=== PATIENT | female | born 1980 | race Caucasian/White ===

== ENCOUNTER → 2017-05-29 06:29 | Outpatient (CLI) | payer BC, SELFPAY ==
--- NOTE | 2017-05-29 11:34 | STRESSREP_ITS ---
Stress Test Report Exercise myocardial perfusion stress test. 36 yo lady with a history of chest pain. Stress protocol: Resting EKG demonstrates normal sinus rhythm with a rate of 90 bpm normal intervals and noted resting blood pressure is 128/90 mmHg. The patient exercised according to the regular [facility] protocol for a total duration of 8-1/2 minutes attaining a maximum heart rate of 187 bpm which was 102% of the maximum predicted heart rate the maximum workload was 10.4 metabolic equivalents. The patient maintained sinus rhythm throughout the recording. At rest there were no ST or T-wave changes noted suggest ischemia peak exercise upsloping ST changes only were noted with no meet criteria for ischemia. No clinical angina was noted the resting blood pressure is 128/90 mmHg rate pressure product was 29 ,100. Myocardial perfusion protocol. 0.4 mCi of technetium 99m sestamibi was injected at rest. The patient exercised for 8-1/2 minutes attaining 102% of the maximum predicted heart rate the maximum workload attained was 10.4 metabolic equivalents. At peak exercise 34.1 mCi of technetium 99m sestamibi was injected. Stress images were obtained. Stress and rest images were reconstructed and compared in the short axis vertical long and horizontal long axis. Gated images were also obtained. Perfusion SPECT analysis: Review of the stress images demonstrate normal uptake of tracer noted in all areas of the myocardium the resting images similarly demonstrate normal uptake of tracer noted in all areas of the myocardium. No areas of reversibility are noted suggest ischemia no clinical angina is noted. Gated SPECT analysis: The gated ejection fraction is noted to be 65%. Conclusion: Normal exercise myocardial perfusion stress test at a high workload. Preserved ejection fraction.
== END ==
LOC: CVS 06:31
PROVIDERS: Family Provider Family Medicine; PCP Family Medicine; Visit Provider Family Medicine
DX: R07.9 Chest pain, unspecified (principal)
CPT/HCPCS: 78452; 93017; A9500; A4216

== ENCOUNTER → 2018-10-25 13:38 | Outpatient (CLI) | payer BC, SELFPAY ==
[2018-10-25 15:34] LABS: Internal QC Validated? YES +Cl - CLEAR BKGD; Monotest Negative (Negative)
[2018-10-25 15:47] LABS: Absolute Lymphocyte Count 1.85 X10^3/ul (0.83-4.51); Absolute Neutrophil Count 5.7 X10^3/uL (2.0-7.7); Basophil# 0.03 X10^3/uL; Basophil% 0.4 % (0-1); Eosinophils% 2.4 % (0-5); Hematocrit 40.8 % (37-47); Hemoglobin 13.3 g/dl (12.0-15.0); Lymphocyte # 1.85 X10^3/ul (4.0); Lymphocyte % 22.5 % (19-41); Mean Corp Hgb Conc 32.6 g/gl (32-36); Mean Corpuscular Hgb 27.7 pg (27.0-32.0); Mean Platelet Vol. 11.4 fl (6.2-12.0); Monocyte# 0.39 X10^3/uL; Monocyte% 4.8 % (0-10); Neutrophil # 5.73 X10^3/uL (2.7-7.7); Neutrophil % 69.8 % (47-70); Platelet Count 170 K/mm3 (150-450); RBC Distribution Width CV 14.6 % (11.6-14.6); RBC Distribution Width SD 45.4 fl (35.1-43.9); White Blood Count 8.2 K/mm3 (4.4-11.0)
[2018-10-25 15:55] LABS: Anion Gap 7 (5-15); BUN 14 mg/dL (7-18); BUN/Creat Ratio 17.7 RATIO (10-20); Calcium,Total 8.7 mg/dL (8.5-10.1); Chloride 105 mmol/L (98-107); Creatinine, Serum 0.79 mg/dL (0.55-1.02); EST Glomerular Filtration Rate 86 mL/min (>60); Est Glom Filt Rate - Afr Amer 104 mL/min (>60); Glucose 104 mg/dL (74-106); Potassium 3.7 mmol/L (3.5-5.1); Sodium Level 138 mmol/L (136-145); Thyroid Stim Hormone (TSH) 1.64 uIU/mL (0.358-3.74)
[2018-10-25 16:10] LABS: POSITIVE COUNT NO; POSITIVE DIFFERENTIAL NO; POSITIVE MORPHOLOGY NO
[2018-10-28 13:48] LABS: EBV Acute VCA IgM < 36.0 U/mL (0.0-35.9); EBV Early Antigen IgG 75.3 U/mL (0.0-8.9)
== END ==
PROVIDERS: Family Provider Family Medicine; PCP Family Medicine; Visit Provider Family Medicine
DX: R53.83 Other fatigue (principal)
CPT/HCPCS: 36415; 80048; 84443; 85025; 86308; 86663; 86664; 86665

== ENCOUNTER → 2018-11-22 13:35 | Outpatient (CLI) | payer BC, SELFPAY ==
[2018-11-27 08:48] LABS: HPV Reflexed? NOT INDICATED
== END ==
PROVIDERS: Family Provider Family Medicine; PCP Family Medicine; Referring Provider Obstetrics & Gynecology; Visit Provider Obstetrics & Gynecology
DX: Z12.4 Encounter for screening for malignant neoplasm of cervix (principal); R30.0 Dysuria
CPT/HCPCS: 87086; 87088; 87624; 88175; G0145

== ENCOUNTER → 2019-02-12 14:59 | Outpatient (CLI) | payer BC, SELFPAY ==
[2019-01-22 14:53] VITALS: BMI 34.0
--- NOTE | 2019-02-12 15:02 | ECHOD_ITS ---
Reason For Study: Arrhythmia Procedure This was a 2D Doppler, Color Flow transthoracic echocardiogram. Exam performed in department. Left Ventricle Normal size and thickness. The estimated ejection fraction is 65 %. Normal diastology for age. No regional wall motion abnormalities noted. Right Ventricle Normal size and thickness. Normal systolic function. Atria Normal left atrium. Normal right atrium. Normal atrial septum. Mitral Valve The mitral valve is structurally normal. No prolapse or stenosis seen. Tricuspid Valve Normal tricuspid valve. Unable to estimate RV systolic pressure due to insufficient tricuspid regurgitant envelope. Aortic Valve Normal aortic valve. Trisinus/trileaflet aortic valve. Pulmonic Valve Normal pulmonic valve. Great Vessels Normal aortic root. Normal arch. Normal inferior vena cava. Inferior vena cava collapse with sniff. Pericardium/Pleural No pericardial effusion. MMode/2D Measurements & Calculations LVIDd: 3.6 cm IVSd: 0.92 cm Ao root diam: 3.0 cm LVIDs: 2.3 cm LVPWd: 1.0 cm LA dimension: 3.2 cm RVDd: 3.2 cm FS: 34.6 % LAV(MOD-bp): 44.1 ml LA A4 area: 17.1 cm2 RA A4 area: 12.8 cm2 LAV(MOD-bp) Indexed: 21.6 ml/m2 LAV(MOD-sp2): 39.1 ml LAV(MOD-sp4): 48.3 ml Time Measurements MV dec time: 0.19 sec Doppler Measurements & Calculations MV E max zack: 77.3 cm/sec Lat Peak E' Zack: 12.1 cm/sec Med Peak E' Zack: 11.7 cm/sec MV A max zack: 69.6 cm/sec E/E' lat: 6.4 E/E' med: 6.6 MV E/A: 1.1 MV V2 max: 76.6 cm/sec MV P1/2t max zack: 76.6 cm/sec Ao V2 max: 129.3 cm/sec MV max P.3 mmHg MV P1/2t: 67.6 msec Ao max P.7 mmHg MV V2 mean: 47.1 cm/sec MV dec slope: 331.8 cm/sec2 Ao V2 mean: 83.4 cm/sec MV mean P.1 mmHg MVA(P1/2t): 3.3 cm2 Ao mean P.2 mmHg MV V2 VTI: 17.0 cm Ao V2 VTI: 24.3 cm LV V1 max: 107.8 cm/sec PA V2 max: 90.5 cm/sec LV V1 max P.7 mmHg LV V1 mean P.2 mmHg LV V1 mean: 66.5 cm/sec LV V1 VTI: 20.8 cm Interpretation Summary The estimated ejection fraction is 65 %. Normal diastology for age. Unable to estimate RV systolic pressure due to insufficient tricuspid regurgitant envelope. There is no comparison study available. Ordering Physician: Prashant Caban Referring Physician: Velma De La Cruz Performed By: Jhonatan Busch RCS
== END ==
PROVIDERS: Family Provider Family Medicine; PCP Family Medicine; Referring Provider Internal Medicine Cardiovascular Disease; Visit Provider Internal Medicine Cardiovascular Disease
DX: R00.0 Tachycardia, unspecified (principal); R00.2 Palpitations; R42 Dizziness and giddiness
CPT/HCPCS: 93306

== ENCOUNTER → 2019-02-13 20:44 | Outpatient (CLI) | payer BC, SELFPAY ==
[2019-01-22 14:53] VITALS: BMI 34.0
== END ==
PROVIDERS: Family Provider Family Medicine; PCP Family Medicine; Referring Provider Internal Medicine Cardiovascular Disease; Visit Provider Internal Medicine Cardiovascular Disease
DX: G47.10 Hypersomnia, unspecified (principal); R06.83 Snoring; R00.0 Tachycardia, unspecified; R00.2 Palpitations; R42 Dizziness and giddiness
CPT/HCPCS: 95810

== ENCOUNTER → 2019-02-21 09:21 | Outpatient (CLI) | payer BC, SELFPAY ==
[2019-01-22 14:53] VITALS: BMI 34.0
--- NOTE | 2019-02-21 09:23 | STE_ITS ---
Reason For Study: ARRHYTHMIA-OTHER Stress Results Maximum Predicted HR: 180 bpm Target HR: 153 bpm % Maximum Predicted HR: 96 % DurationHeart Rate Stage (mm:ss) (bpm) BP BASELINE 88 122/90 STAGE 1 3:00 126 122/70 STAGE 2 3:00 141 134/82 STAGE 3 3:00 173 142/90 RECOVERY 116 120/80 Stress Duration: 9:00 mm:ss Maximum Stress HR: 173 bpm Baseline Echocardiogram Findings The estimated ejection fraction is 65 %. Stress Echo Wall motion Data Resting WM Intermediate WM Stress WM Resting Wall Motion Wall Motion Stress No regional wall motion No regional wall motion abnormalities noted. abnormalities noted. EKG Data The baseline ECG displays normal sinus rhythm. The patient exercised according to the regular [facility] protocol for a total duration of 9:00. The maximum heart rate attained was 190 beats per minute. This was 105% of maximum predicted heart rate. The patient exercised into stage 4 of the [facility]ico protocol. During stress, there were no ST or T wave changes noted to suggest ischemia. No clinical angina was noted. Interpretation Summary The estimated ejection fraction is 65 %. Normal, adequate, treadmill echocardiogram. Negative for ischemia by EKG and echocardiographic criteria. No anginal symptoms noted. Rare PVC noted. Appropriate blood pressure response to exercise. Average exercise capacity for age. Final LVEF is 75%. Test terminated due to attainment of target heart rate and dyspnea. Patient tolerated procedure well. No complications. Ordering Physician: Prashant Caban MD Referring Physician: Prashant Caban Performed By: Marta Hernandez RDCS
[2019-02-21 12:01] LABS: AST(SGOT) 28 U/L (15-37); Alanine Aminotransfer ALT/SGPT 43 U/L (13-56); Albumin, Serum 3.6 g/dL (3.2-5.0); Alkaline Phosphatase 79 U/L (45-117); Bilirubin, Direct 0.23 mg/dL (0.00-0.30); Cholesterol 204 mg/dL (200); Globulin 4.4 g/dL (2.2-4.2); High Density Lipoprotein 44 mg/dL; Triglycerides 142 mg/dL; Very Low Density Lipoprotein 28 mg/dL (5-40)
== END ==
PROVIDERS: Family Provider Family Medicine; PCP Family Medicine; Referring Provider Internal Medicine Cardiovascular Disease; Visit Provider Internal Medicine Cardiovascular Disease
DX: Z13.220 Encounter for screening for lipoid disorders (principal); R00.0 Tachycardia, unspecified; R00.2 Palpitations; R42 Dizziness and giddiness; G47.10 Hypersomnia, unspecified; R06.83 Snoring
CPT/HCPCS: 36415; 80061; 80076; 93017; 93350

== ENCOUNTER → 2019-05-03 20:00 | Outpatient (CLI) | payer BC, SELFPAY ==
[2019-02-28 07:53] VITALS: BMI 34.0
== END ==
PROVIDERS: Family Provider Family Medicine; PCP Family Medicine; Referring Provider Nurse Practitioner Acute Care; Visit Provider Nurse Practitioner Acute Care
DX: G47.33 Obstructive sleep apnea (adult) (pediatric) (principal)
CPT/HCPCS: 95811

== ENCOUNTER → 2019-05-23 09:00 | Outpatient (CLI) | payer BC, SELFPAY ==
[2019-02-28 07:53] VITALS: BMI 34.0
== END ==
PROVIDERS: PCP Family Medicine; Referring Provider Nurse Practitioner Acute Care; Visit Provider Nurse Practitioner Acute Care
DX: G47.33 Obstructive sleep apnea (adult) (pediatric) (principal)

== ENCOUNTER → 2019-06-20 13:00 | Outpatient (CLI) | payer BC, SELFPAY ==
[2019-06-03 12:28] VITALS: BMI 34.2
== END ==
PROVIDERS: PCP Family Medicine; Referring Provider Internal Medicine Critical Care Medicine; Visit Provider Internal Medicine Critical Care Medicine
DX: G47.10 Hypersomnia, unspecified (principal)
CPT/HCPCS: 98960; G0463

== ENCOUNTER → 2020-02-12 09:11 | Outpatient (CLI) | payer BC, SELFPAY ==
[2019-08-06 08:07] VITALS: BMI 34.2
[2020-02-12 10:36] LABS: Absolute Lymphocyte Count 1.62 X10^3/uL (0.83-4.51); Absolute Neutrophil Count 6.4 X10^3/uL (2.0-7.7); Basophil# 0.06 X10^3/uL; Basophil% 0.7 % (0-1); Eosinophil# 0.29 X10^3/uL; Eosinophils% 3.2 % (0-5); Hematocrit 40.9 % (37-47); Hemoglobin 12.9 g/dL (12.0-15.0); Lymphocyte # 1.62 X10^3/ul (4.0); Lymphocyte % 18.1 % (19-41); Mean Corp Hgb Conc 31.5 g/dL (32-36); Mean Corpuscular Hgb 27.4 pg (27.0-32.0); Mean Platelet Vol. 11.8 fl (6.2-12.0); Monocyte# 0.55 X10^3/uL; Monocyte% 6.2 % (0-10); NRBC Flagged by Analyzer 0 % (0-5); Neutrophil # 6.38 X10^3/uL (2.7-7.7); Neutrophil % 71.5 % (47-70); Platelet Count 174 K/mm3 (150-450); RBC Distribution Width CV 13.8 % (11.6-14.6); RBC Distribution Width SD 44.8 fl (35.1-43.9); White Blood Count 8.9 K/mm3 (4.4-11.0)
== END ==
PROVIDERS: PCP Family Medicine; Referring Provider Family Medicine; Visit Provider Family Medicine
DX: D69.6 Thrombocytopenia, unspecified (principal)
CPT/HCPCS: 36415; 85025

== ENCOUNTER → 2020-06-25 06:59 | Outpatient (CLI) | payer BC, SELFPAY ==
[2020-05-21 08:30] VITALS: BMI 35.5
[2020-06-24 11:07] VITALS: BMI 35.6
--- NOTE | 2020-06-25 07:02 | CT_ITS ---
STUDY: CT MAXILLOFACIAL SINUSES REASON FOR EXAM: Female, 39 years old. SINUSITIS RADIATION DOSAGE (If Supplied By Facility): CTDIvol = ( 33.06 ) mGy, DLP = ( 751.21 ) mGycm TECHNIQUE: The patient was scanned in a multi detector CT scanner. High resolution axial imaging was performed without the administration of intravenous contrast material. Sagittal and coronal images were reconstructed. Individualized dose optimization techniques were used for this CT. COMPARISON: None. FINDINGS: FRONTAL SINUSES: Normal aeration, without mucosal inflammatory disease. ETHMOIDAL SINUSES: Normal aeration, without mucosal inflammatory disease. MAXILLARY SINUSES: Normal aeration, without mucosal inflammatory disease. SPHENOIDAL SINUSES: Normal aeration, without mucosal inflammatory disease. There is patency of the bilateral maxillary infundibuli with normal uncinate processes, ethmoid bullae, and hiatus semilunaris. Hypoplastic right middle turbinate. Normal left middle turbinate. Normal bilateral inferior turbinates. Moderate right-sided deviation of the nasal septum. This is narrowing the right nasal cavity. There is patency of the bilateral nasal airways. The visualized osseous structures are normal. The visualized bilateral orbital contents are normal. CT/Sinus/Facial Bone IMPRESSION: 1. No CT evidence of acute or chronic sinusitis. 2. Moderate right-sided nasal septal deviation narrowing the right nasal airway. 3. Bilaterally patent ostiomeatal units. Electronically Signed: Tenzin San MD at 11:17 EST , Service support ,
== END ==
PROVIDERS: PCP Family Medicine; Referring Provider Otolaryngology; Visit Provider Otolaryngology
DX: J32.8 Other chronic sinusitis (principal)
CPT/HCPCS: 70486

== ENCOUNTER → 2020-08-28 15:21 | Outpatient (CLI) | payer BC, SELFPAY ==
[2020-06-24 11:07] VITALS: BMI 35.6
== END ==
PROVIDERS: PCP Family Medicine; Referring Provider Otolaryngology; Visit Provider Otolaryngology
DX: Z20.822 Contact with and (suspected) exposure to COVID-19 (principal)
CPT/HCPCS: 87635; C9803; U0002

== ENCOUNTER → 2020-09-10 09:34 | Outpatient (CLI) | payer BC, SELFPAY ==
[2020-06-24 11:07] VITALS: BMI 35.6
[2020-09-10 12:28] LABS: Absolute Lymphocyte Count 1.68 X10^3/uL (0.83-4.51); Absolute Neutrophil Count 5.3 X10^3/uL (2.0-7.7); Basophil# 0.07 X10^3/uL; Basophil% 0.9 % (0-1); Eosinophil# 0.21 X10^3/uL; Eosinophils% 2.7 % (0-5); Hematocrit 39.6 % (37-47); Hemoglobin 12.7 g/dL (12.0-15.0); Lymphocyte # 1.68 X10^3/ul (0.83-4.51); Lymphocyte % 21.7 % (19-41); Mean Corp Hgb Conc 32.1 g/dL (32-36); Mean Corpuscular Hgb 27.7 pg (27.0-32.0); Mean Corpuscular Volume 86.5 fL (81-99); Mean Platelet Vol. 11.9 fl (6.2-12.0); Monocyte# 0.48 X10^3/uL; Monocyte% 6.2 % (0-10); NRBC Flagged by Analyzer 0 % (0-5); Neutrophil # 5.27 X10^3/uL (2.7-7.7); Platelet Count 218 K/mm3 (150-450); RBC Distribution Width CV 13.9 % (11.6-14.6); RBC Distribution Width SD 43.8 fl (35.1-43.9); Red Blood Count 4.58 M/mm3 (4.2-5.4); White Blood Count 7.8 K/mm3 (4.4-11.0)
[2020-09-10 13:02] LABS: Vitamin D,25 Hydroxy 16.2 ng/mL
[2020-09-10 13:07] LABS: Anion Gap 6 (5-15); BUN 11 mg/dL (7-18); BUN/Creat Ratio 15.2 RATIO (10-20); Calcium,Total 8.9 mg/dL (8.5-10.1); Chloride 104 mmol/L (98-107); Cholesterol 237 mg/dL (200); Creatinine, Serum 0.73 mg/dL (0.55-1.02); EST Glomerular Filtration Rate 94 mL/min (>60); Est Glom Filt Rate - Afr Amer 113 mL/min (>60); Follicle Stimulating Hormone 5.5 mIU/mL; Glucose 92 mg/dL (74-106); High Density Lipoprotein 39 mg/dL; Luteinizing Hormone 4.8 mIU/mL; Potassium 3.9 mmol/L (3.5-5.1); Sodium Level 135 mmol/L (136-145); Triglycerides 195 mg/dL; Very Low Density Lipoprotein 39 mg/dL (5-40)
[2020-09-20 07:46] LABS: Estrogen, Total, Serum 167 pg/mL (.)
== END ==
PROVIDERS: PCP Family Medicine; Referring Provider Family Medicine; Visit Provider Family Medicine
DX: Z00.00 Encounter for general adult medical examination without abnormal findings (principal); D69.6 Thrombocytopenia, unspecified; N95.9 Unspecified menopausal and perimenopausal disorder
CPT/HCPCS: 36415; 80048; 80061; 82306; 82672; 83001; 83002; 85025

== ENCOUNTER → 2020-11-09 07:31 | Outpatient (CLI) | payer BC, SELFPAY ==
[2020-06-24 11:07] VITALS: BMI 35.6
--- NOTE | 2020-11-09 07:35 | US_ITS ---
STUDY: SUPERFICIAL ULTRASOUND - LEFT BUTTOCK. REASON FOR EXAM: Female, 40 years old. BUTTOCK PAIN . Palpable lump. TECHNIQUE: A superficial ultrasound was performed with real-time and static underwood-scale imaging. COMPARISON: None. FINDINGS: The area of the palpable abnormality was examined by ultrasound. No sonographic abnormality is seen. US/Ext Non Vasc Limited/Soft Tiss IMPRESSION: No sonographic abnormality is seen. Electronically Signed: Kuldeep Goldstein MD at 13:17 EDT , Service support ,
== END ==
PROVIDERS: PCP Family Medicine; Referring Provider Family Medicine; Visit Provider Family Medicine
DX: M79.18 Myalgia, other site (principal)
CPT/HCPCS: 76882

== ENCOUNTER → 2021-02-11 13:45 | Outpatient (CLI) | payer BC, SELFPAY ==
[2021-02-16 11:58] LABS: HPV Reflexed? NOT INDICATED
== END ==
PROVIDERS: PCP Family Medicine; Visit Provider Obstetrics & Gynecology
DX: Z12.4 Encounter for screening for malignant neoplasm of cervix (principal)
CPT/HCPCS: 88175; G0145

== ENCOUNTER → 2021-02-19 08:29 | Outpatient (CLI) | payer BC, SELFPAY ==
[2021-02-19 10:12] LABS: Cholesterol 213 mg/dL (200); High Density Lipoprotein 42 mg/dL; Triglycerides 189 mg/dL; Very Low Density Lipoprotein 38 mg/dL (5-40)
== END ==
PROVIDERS: PCP Family Medicine; Referring Provider Family Medicine; Visit Provider Family Medicine
DX: E78.5 Hyperlipidemia, unspecified (principal)
CPT/HCPCS: 36415; 80061

== ENCOUNTER 2021-07-06 16:57 | Outpatient (CLI) | payer BC, SELFPAY | END 2021-07-06 23:59 | disposition home or self-care (01) | LOC: LABSPEC 16:59 | PROVIDERS: PCP Family Medicine; Visit Provider Obstetrics & Gynecology | DX: R30.0 Dysuria (principal) | CPT/HCPCS: 87086; 87088 ==

== ENCOUNTER → 2022-06-07 | Outpatient (CLI) | payer BC, SELFPAY ==
[2022-06-07 09:47] LABS: Absolute Lymphocyte Count 2.19 X10^3/uL (0.83-4.51); Absolute Neutrophil Count 5.6 X10^3/uL (2.0-7.7); Basophil# 0.09 X10^3/uL; Eosinophil# 0.36 X10^3/uL; Hematocrit 42.8 % (37-47); Hemoglobin 13.6 g/dL (12.0-15.0); Lymphocyte # 2.19 X10^3/ul (0.83-4.51); Lymphocyte % 24.6 % (19-41); Mean Corp Hgb Conc 31.8 g/dL (32-36); Mean Corpuscular Hgb 26.9 pg (27.0-32.0); Mean Corpuscular Volume 84.8 fL (81-99); Mean Platelet Vol. 11.7 fl (6.2-12.0); Monocyte% 6.7 % (0-10); NRBC Flagged by Analyzer 0 % (0-5); Neutrophil # 5.59 X10^3/uL (2.7-7.7); Neutrophil % 62.9 % (47-70); Platelet Count 372 K/mm3 (150-450); RBC Distribution Width CV 14.4 % (11.6-14.6); RBC Distribution Width SD 44.4 fl (35.1-43.9); Red Blood Count 5.05 M/mm3 (4.2-5.4); White Blood Count 8.9 K/mm3 (4.4-11.0)
[2022-06-07 10:24] LABS: Anion Gap 10 (5-15); BUN 13 mg/dL (7-18); BUN/Creat Ratio 16.5 RATIO (10-20); Chloride 100 mmol/L (98-107); Cholesterol 243 mg/dL (200); Creatinine, Serum 0.79 mg/dL (0.55-1.02); EST Glomerular Filtration Rate 84 mL/min (>60); Est Glom Filt Rate - Afr Amer 102 mL/min (>60); Glucose 89 mg/dL (74-106); High Density Lipoprotein 41 mg/dL; Potassium 3.6 mmol/L (3.5-5.1); Sodium Level 135 mmol/L (136-145); Triglycerides 197 mg/dL; Very Low Density Lipoprotein 39 mg/dL (5-40)
[2022-06-07 10:25] LABS: Vitamin D,25 Hydroxy 22.7 ng/mL
== END | disposition home or self-care (01) ==
LOC: MFPLAB 08:19
PROVIDERS: PCP Family Medicine; Referring Provider Family Medicine; Visit Provider Family Medicine
DX: Z00.00 Encounter for general adult medical examination without abnormal findings (principal); I88.9 Nonspecific lymphadenitis, unspecified
CPT/HCPCS: 36415; 80048; 80061; 82306; 85025

== ENCOUNTER → 2022-07-08 | Outpatient (CLI) | payer BC, SELFPAY ==
--- NOTE | 2022-07-08 15:31 | RAD_ITS ---
INDICATION: PNEUMONIA EXAMINATION/TECHNIQUE: X-RAY - XR Chest 2 Views COMPARISON: None. FINDINGS: LINES/DEVICES: None. LUNGS: No consolidation, edema or effusion. No pneumothorax. MEDIASTINUM AND CARDIOVASCULAR STRUCTURES: Cardiac silhouette not enlarged. Central airways and mediastinal contour are unremarkable. BONES AND SOFT TISSUES: Mild degenerative changes mid thoracic spine. RAD/Chest PA and Lateral IMPRESSION: Mild degenerative changes mid thoracic spine. Electronically Signed: Brando Lancaster MD, [facility] at 15:55 EDT ,
[2022-07-08 17:57] LABS: Absolute Lymphocyte Count 1.56 X10^3/uL (0.83-4.51); Absolute Neutrophil Count 12.2 X10^3/uL (2.0-7.7); Basophil% 0.7 % (0-1); Eosinophils% 1.3 % (0-5); Hematocrit 42.5 % (37-47); Hemoglobin 13.5 g/dL (12.0-15.0); Lymphocyte # 1.56 X10^3/ul (0.83-4.51); Lymphocyte % 10.4 % (19-41); Mean Corp Hgb Conc 31.8 g/dL (32-36); Mean Corpuscular Hgb 27.2 pg (27.0-32.0); Mean Corpuscular Volume 85.5 fL (81-99); Mean Platelet Vol. 11.7 fl (6.2-12.0); Monocyte# 0.67 X10^3/uL; Monocyte% 4.5 % (0-10); NRBC Flagged by Analyzer 0 % (0-5); Neutrophil % 81.5 % (47-70); Platelet Count 344 K/mm3 (150-450); RBC Distribution Width CV 14.9 % (11.6-14.6); RBC Distribution Width SD 46.5 fl (35.1-43.9); Red Blood Count 4.97 M/mm3 (4.2-5.4)
== END | disposition home or self-care (01) ==
PROVIDERS: PCP Family Medicine; Referring Provider Family Medicine; Visit Provider Family Medicine
DX: J18.9 Pneumonia, unspecified organism (principal)
CPT/HCPCS: 36415; 71046; 85025

== ENCOUNTER → 2022-12-26 | Outpatient (CLI) | payer BC, SELFPAY ==
--- NOTE | 2022-12-26 09:02 | RAD_ITS ---
STUDY: X-RAY - CERVICAL SPINE REASON FOR EXAM: Female, 42 years old. CERVICALGIA TECHNIQUE: 7 view(s) of the cervical spine were obtained. COMPARISON: None FINDINGS: There are mild degenerative changes of the anterior atlantoaxial articulation. Normal odontoid process. Normal cervical lordosis. Normal vertebral bodies and endplates. Normal disc space heights. Normal visualized intervertebral neuroforamina. The soft tissue structures are unremarkable. There is no demonstrated fracture of the cervical spine. RAD/Cerv Spine Obl/Flex/Ext Comp IMPRESSION: Unremarkable x-ray examination of the visualized cervical spine. Electronically Signed: Soraya Harvey MD at 17:26 EDT ,
[2022-12-26 12:10] LABS: Absolute Lymphocyte Count 1.78 X10^3/uL (0.83-4.51); Absolute Neutrophil Count 5.9 X10^3/uL (2.0-7.7); Basophil# 0.06 X10^3/uL; Basophil% 0.7 % (0-1); Eosinophil# 0.28 X10^3/uL; Eosinophils% 3.3 % (0-5); Hematocrit 41.6 % (37-47); Hemoglobin 13.1 g/dL (12.0-15.0); Lymphocyte # 1.78 X10^3/ul (0.83-4.51); Lymphocyte % 20.7 % (19-41); Mean Corp Hgb Conc 31.5 g/dL (32-36); Mean Corpuscular Hgb 27.1 pg (27.0-32.0); Mean Platelet Vol. 12.9 fl (6.2-12.0); Monocyte# 0.52 X10^3/uL; NRBC Flagged by Analyzer 0 % (0-5); Neutrophil # 5.91 X10^3/uL (2.7-7.7); Neutrophil % 68.7 % (47-70); Platelet Count 245 K/mm3 (150-450); RBC Distribution Width SD 47.4 fl (35.1-43.9); Red Blood Count 4.84 M/mm3 (4.2-5.4); White Blood Count 8.6 K/mm3 (4.4-11.0)
[2022-12-26 12:52] LABS: ALB/GLOB Ratio 0.7 RATIO (0.9-2.4); AST(SGOT) 19 U/L (15-37); Alanine Aminotransfer ALT/SGPT 30 U/L (13-56); Albumin, Serum 3.5 g/dL (3.2-5.0); Alkaline Phosphatase 105 U/L (45-117); Anion Gap 9 (5-15); BUN 9 mg/dL (7-18); BUN/Creat Ratio 10.8 RATIO (10-20); Calcium,Total 8.9 mg/dL (8.5-10.1); Chloride 103 mmol/L (98-107); Cholesterol 207 mg/dL (200); Creatinine, Serum 0.83 mg/dL (0.55-1.02); EST Glomerular Filtration Rate 79 mL/min (>60); Est Glom Filt Rate - Afr Amer 96 mL/min (>60); Globulin 4.7 g/dL (2.2-4.2); Glucose 80 mg/dL (74-106); High Density Lipoprotein 38 mg/dL; Potassium 3.9 mmol/L (3.5-5.1); Protein, Total 8.2 g/dL (6.4-8.2); Sodium Level 133 mmol/L (136-145); Triglycerides 159 mg/dL; Very Low Density Lipoprotein 32 mg/dL (5-40)
== END | disposition home or self-care (01) ==
PROVIDERS: PCP Family Medicine; Referring Provider Family Medicine; Visit Provider Family Medicine
DX: E78.5 Hyperlipidemia, unspecified (principal); D69.6 Thrombocytopenia, unspecified; M54.2 Cervicalgia
CPT/HCPCS: 36415; 72052; 80053; 80061; 85025

== ENCOUNTER → 2023-07-14 | Outpatient (CLI) | payer BC, SELFPAY ==
[2023-07-14 10:21] LABS: ALB/GLOB Ratio 0.8 RATIO (0.9-2.4); AST(SGOT) 10 U/L (15-37); Alanine Aminotransfer ALT/SGPT 14 U/L (13-56); Albumin, Serum 3.4 g/dL (3.2-5.0); Alkaline Phosphatase 82 U/L (45-117); Anion Gap 5 (5-15); BUN 11 mg/dL (7-18); BUN/Creat Ratio 14.1 RATIO (10-20); Calcium,Total 8.6 mg/dL (8.5-10.1); Chloride 106 mmol/L (98-107); Cholesterol 209 mg/dL (200); Creatinine, Serum 0.78 mg/dL (0.55-1.02); EST Glomerular Filtration Rate 85 mL/min (>60); Est Glom Filt Rate - Afr Amer 103 mL/min (>60); Globulin 4.1 g/dL (2.2-4.2); Glucose 94 mg/dL (74-106); High Density Lipoprotein 49 mg/dL; Protein, Total 7.5 g/dL (6.4-8.2); Sodium Level 136 mmol/L (136-145); Triglycerides 96 mg/dL; Very Low Density Lipoprotein 19 mg/dL (5-40)
== END | disposition home or self-care (01) ==
LOC: MTLAB 08:55
PROVIDERS: PCP Family Medicine; Referring Provider Family Medicine; Visit Provider Family Medicine
DX: E78.5 Hyperlipidemia, unspecified (principal)
CPT/HCPCS: 36415; 80053; 80061

== ENCOUNTER → 2023-07-24 | Outpatient (CLI) | payer BC, SELFPAY ==
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
== END | disposition home or self-care (01) ==
PROVIDERS: PCP Family Medicine; Referring Provider Family Medicine; Visit Provider Family Medicine
DX: M54.2 Cervicalgia (principal)
CPT/HCPCS: 72141

== ENCOUNTER → 2024-08-29 | Outpatient (CLI) | payer BC, SELFPAY ==
[2024-08-29 12:46] LABS: Color, Urine Yellow (Yellow); Glucose, Dipstick Normal (Normal); Ketone-Dipstick 5 mg/dl (Negative); Leukocyte Esterase-Dipstick 25 /ul (Negative); Nitrite-Dipstick Negative (Negative); Occult Blood-Urine 10 /ul (Negative); Protein-Dipstick 30 mg/dl (Negative); Urine Bilirubin Dipstick Negative (Negative); Urine Clarity Sl. Cloudy (Clear); Urine Urobilinogen Normal (Normal)
== END | disposition home or self-care (01) ==
LOC: LABSPEC 10:44
PROVIDERS: PCP Family Medicine; Referring Provider Family Medicine; Visit Provider Family Medicine
DX: R39.89 Other symptoms and signs involving the genitourinary system (principal); E78.5 Hyperlipidemia, unspecified; D69.6 Thrombocytopenia, unspecified; M54.2 Cervicalgia
CPT/HCPCS: 81002; 87086; 87088

== ENCOUNTER → 2024-11-22 | Outpatient (CLI) | payer BC, SELFPAY ==
[2024-11-22 18:14] LABS: Barbiturate Urine NEGATIVE (< 200 ng/mL); Benzodiazepine Urine NEGATIVE (< 200 ng/mL); PCP Urine NEGATIVE (< 25 ng/mL); THC Urine NEGATIVE (< 50 ng/mL)
== END | disposition home or self-care (01) ==
LOC: MTLAB 15:39
PROVIDERS: PCP Family Medicine; Referring Provider Internal Medicine Pulmonary Disease; Visit Provider Internal Medicine Pulmonary Disease
DX: G47.10 Hypersomnia, unspecified (principal)
CPT/HCPCS: 80307

== ENCOUNTER → 2024-12-30 | Outpatient (CLI) | payer BC, SELFPAY ==
--- OUTSIDE RECORDS SUMMARY | 2024-12-30 09:30 | XMS RPT_ITS | CCD ---
Author Organization [facility] Care Team Providers Care Project Assistant Name Role Phone Cuba Lewis MD Primary Care Provider [phone] SARAH ROUSE Referring Unavailable CUBA LEWIS Primary Care Unavailable CUBA LEWIS Primary Care Unavailable Maria Dolores HENDERSON, Dr. Brink Primary Care Provider Maria Dolores HENDERSON, Dr. Brink Attending Provider Maria Dolores HENDERSON, Dr. Brink Referring Provider Karlos HENDERSON, Dr. Trevor Moise Attending Provider Karlos HENDERSON, Dr. Trevor Moise Referring Provider [phone] Cuba Lewis Primary Care Unavailable Cuba Lewis Attending Unavailable Cuba Lewis Referring Unavailable Trevor Everett V Attending Unavailable Trevor Everett V Referring Unavailable Cuba Lewis Primary Care Unavailable Allergies Allergy Classification Reported Allergen(s) Allergy Type Date of Onset Reaction(s) Facility (3 sources) Sulfonamides (Antibiotic); Translations: [SULFA (SULFONAMIDE ANTIBIOTICS)] Drug Intolerance 02-22-20 14 Rash, Shortness of Breath [facility] (2 sources) Sulfamethoxazole Drug Allergy 06-12-19 25 Anaphylaxis [facility] (2 sources) Trimethoprim Drug Allergy 06-12-19 25 Anaphylaxis [facility] (1 source) Sulfamethoxazole Drug Allergy 06-12-19 25 [facility] (1 source) Trimethoprim Drug Allergy 06-12-19 25 [facility] Medications Current Medications Medication Drug Class(es) Dates Sig (Normalized) Sig (Original) ALPRAZolam 0.25 mg oral tablet (2 sources) Benzodiazepine Start: 03-01-2014 take 1 tablet by mouth every twenty-four hours as needed ALPRAZolam (XANAX) 0.25 mg tablet Take 1 tablet by mouth at bedtime as needed. 10 tablet 0 03/01/2014 Active clobetasol propionate 0.5 mg/ml topical cream (2 sources) Corticosteroid Start: 06-12-2024 Clobetasol 0.05 % cream Active 1 NMA TOPICAL daily as needed June 12, 2024 1:00am codeine phosphate 2 mg/ml / guaiFENesin 20 mg/ml oral solution (2 sources) Opioid Agonist Start: 06-12-2015 take 5 mL by mouth three times daily as needed codeine-guaiFENes in (GUAIFENESIN AC) 10-100 mg/5 mL syrup Indications: Upper respiratory tract infection, unspecified type Take 5 mL by mouth three times daily as needed. 120 mL 0 06/12/2015 Active FLUoxetine 40 mg oral capsule (4 sources) Serotonin Reuptake Inhibitor Start: 06-12-2024 take 1 capsule by mouth once daily Fluoxetine 40 mg capsule Active 40 mg PO daily June 12, 2024 1:00am Start: 02-25-2014 take 1 capsule by mo ut once daily FLUoxetine (PROZAC) 10 mg capsule Take 1 capsule by mouth once daily. 30 capsule 0 02/25/2014 Active gabapentin 300 mg oral capsule (20 sources) Anti-epileptic Agent Start: 06-12-2024 take 1 capsule by mouth three times daily Gabapentin (Neurontin) 300 mg capsule Active 300 mg PO THREE TIMES A DAY June 12, 2024 1:00am Start: 05-21-2020 End: 06-12-2024 take 3 capsules by mouth twice daily Gabapentin 100 mg capsule Discontinued 300 mg PO TWICE A DAY May 21, 2020 9:30am June 12, 2024 7:27pm Start: 05-21-2020 take 300 mg by mouth twice mikael ly Gabapentin Active 300 MG PO TWICE A DAY May 21, 2020 9:30am Start: 01-21-2019 End: 05-21-2020 take 1 capsule by mouth twice daily Gabapentin 100 mg capsule Discontinued 100 mg PO TWICE A DAY January 21, 2019 12:00am May 21, 2020 9:30am take 1 capsule by mo uth twice daily gabapentin (NEURONTIN) 300 mg capsule Take 300 mg by mouth twice daily. Active modafinil 200 mg oral tablet (2 sources) Sympathomimetic-like Agent Start: 06-12-2024 take 1 tablet by mouth once daily Modafinil (Provigil) 200 mg tablet Active 200 mg PO daily June 12, 2024 1:00am thyroid (mcc) 90 mg oral tablet (2 sources) Start: 06-12-2024 take 1 tablet by mouth once daily in the morning Thyroid (Pork) (Rap Artist Thyroid) 90 mg tablet Active 90 mg PO EVERY MORNING June 12, 2024 1:00am traMADol hydrochloride 50 mg oral tablet (10 sources) Opioid Agonist Start: 01-21-2019 End: 06-12-2024 take 1 tablet by mouth three times daily as needed Tramadol 50 mg tablet Active 50 mg PO THREE TIMES A DAY as needed June 12, 2024 7:27pm Completed/Discontinued Medications Medication Drug Class(es) Dates Sig (Normalized) Sig (Original) 24 hr dilTIAZem hydrochloride 180 mg extended release oral capsule (20 sources) Calcium Channel Estrellita Start: 08-06-2019 End: 05-16-2024 take 1 capsule by mouth once daily Diltiazem Hcl 180 mg capsule,extended release 24hr Discontinued 180 mg PO DAILY 30 0 May 10, 2024 4:44pm May 16, 2024 3:15pm Start: 01-22-2019 End: 08-06-2019 take 1 capsule by mouth once daily Diltiazem Hcl 120 mg capsule,extended release 24hr Discontinued 120 mg PO DAILY 30 11 January 22, 2019 12:00am August 06, 2019 9:34am Problems Active Problems Problem Classification Problem Date Documented Date Episodic/Chronic Cardiac dysrhythmias (16 sources) Palpitations; Translations: [Palpitations] 05-21-2020 Episodic Conditions associated with dizziness or vertigo (16 sources) Dizziness; Translations: [Dizziness and giddiness] 05-21-2020 Episodic Disorders of lipid metabolism (2 sources) Hyperlipidemia; Translations: [Hyperlipidemia, unspecified] 06-12-2024 Chronic Genitourinary symptoms and ill-defined conditions (1 source) Other symptoms and signs involving the genitourinary system; Translations: [Other symptoms and signs involving the genitourinary system] Onset: 09-04-2024 Episodic Malaise and fatigue (2 sources) Fatigue; Translations: [Other fatigue] 06-12-2024 Episodic Other lower respiratory disease (8 sources) Snoring; Translations: [Snoring] 01-22-2019 Episodic Other lower respiratory disease (2 sources) Cough; Translations: [Acute cough] 04-24-2024 Episodic Other nutritional; endocrine; and metabolic disorders (8 sources) Body mass index 30+ - obesity; Translations: [Body mass index (BMI) 34.0-34.9, adult] 02-28-2019 Chronic Residual codes; unclassified (8 sources) Obstructive sleep apnea syndrome; Translations: [Obstructive sleep apnea (adult) (pediatric)] 05-21-2020 Chronic Comment on above: AHI of 74.5 events p er hour Residual codes; unclassified (8 sources) Hypersomnia; Translations: [Hypersomnia, unspecified] 01-22-2019 Chronic Residual codes; unclassified (1 source) Hypersomnia, unspecified; Translations: [Hypersomnia, unspecified] Onset: 11-28-2024 Chronic Unclassified (1 source) Acute cough; Translations: [Acute cough] Onset: 04-24-2024 Viral infection (1 source) Viral disease; Translations: [Viral infection, unspecified] 04-24-2024 Episodic Past or Other Problems Problem Classification Problem Date Documented Da te Episodic/Chronic Headache; including migraine (2 sources) Headache; Translations: [Headache] Onset: 12-17-2008 12-17-2008 Episodic Spondylosis; intervertebral disc disorders; other back problems (2 sources) Neck pain; Translations: [Cervicalgia] Onset: 04-14-2009 04-14-2009 Episodic Results Test Name Value Interpretation Reference Range Facility Amphetamine detection with 1 000 ng/mL as cutoffOrdered By: Trevor Everett on 11-22-2024 Amphetamines Screen method >1000 ng/mL Ql (U) Negative < 200 ng/mL [facility] No Panel InformationOrdered By: Trevor Everett on 11-22-2024 Urine Buprenorphine Qualitative Negative < 200 ng/mL [facility] Urine Oxycodone Screen Negative < 100 ng/mL [facility] Quantitative urine opiates m easurementOrdered By: Trevor Everett on 11-22-2024 Opiates Ql (U) Negative < 300 ng/mL [facility] Screening urine fentanyl marilee surementOrdered By: Trevor Everett on 11-22-2024 fentaNYL Screen Ql (U) Negative [facility] Urine Drug Screen (VISTA)on 11-22-2024 AMPHETAMINES Negative Normal <1000 ng/mL [facility] Comment on above: Order Comment: UNK Performed By: #### L 505.5000 #### [facility] [address] [place] [address] BARBITIURATES Negative Normal < 200 ng/mL [facility] Comment on above: Order Comment: UNK Performed By: #### L 505.5000 #### [facility] [address] [place] [address] BENZODIAZIPINE Negative Normal < 200 ng/mL [facility] Comment on above: Order Comment: UNK Performed By: #### L 505.5000 #### [facility] [address] [place] [address] BUP Ur Drug Scr Negative Normal < 200 ng/mL [facility] Comment on above: Order Comment: UNK Performed By: #### L 505.5000 #### [facility] [address] [place] [address] COCAINE Negative Normal < 300 ng/mL [facility] Comment on above: Order Comment: UNK Performed By: #### L 505.5000 #### [facility] [address] [place] [address] Fentanyl Negative Normal [facility] Comment on above: Order Comment: UNK Performed By: #### L 505.5000 #### [facility] [address] [place] [address] METHADONE Negative Normal < 300 ng/mL [facility] Comment on above: Order Comment: UNK Performed By: #### L 505.5000 #### [facility] [address] [place] [address] OPIATES Negative Normal < 300 ng/mL [facility] Comment on above: Order Comment: UNK Performed By: #### L 505.5000 #### [facility] [address] [place] [address] OXYCODONE Negative Normal < 100 ng/mL [facility] Comment on above: Order Comment: UNK Performed By: #### L 505.5000 #### [facility] [address] [place], [place], [address] PCP Negative Normal < 25 ng/mL [facility] Comment on above: Order Comment: UNK Performed By: #### L 505.5000 #### [facility] [address] [place], [place], [id number] THC Negative Normal < 50 ng/mL [facility] Comment on above: Order Comment: UNK Performed By: #### L 505.5000 #### [facility] [address] [place], [place], [id number] Urine benzodiazepine levelOr dered By: Trevor Everett on 11-22-2024 Benzodiazepines Ql (U) Negative < 200 ng/mL [facility] Urine cocaine levelOrdered B y: Trevor Everett on 11-22-2024 Cocaine Ql (U) Negative < 300 ng/mL [facility] Urine [id number]-4-nwnfocgcorbjtk abinol (THC) measurementOrdered By: Trevor Everett on 11-22-2024 Cannabinoids Screen Ql (U) Negative < 50 ng/mL [facility] Urine phencyclidine (PCP) de tectionOrdered By: Trevor Everett on 11-22-2024 Phencyclidine Ql (U) Negative < 25 ng/mL [facility] L3410.9992on 09-14-2024 [facility] Misc. Normal [facility] Comment on above: Order Comment: [id number] CANNABINOIDS URINE RT Result Comment: TEST RESULTS LIMITS Cannabinoid, Urine Cannabinoid Positive Cutoff=20 Carboxy THC Conf, MS, UR 378 ng/mL Cutoff=10 Please Note: Drug test results should be interpreted in the context of clinical information. Patient metabolic variables, specific drug chemistry, and specimen characteristics can affect test outcome. Technical consultation is available if a test result is inconsistent with an expected outcome. Email: [email or web address] TESTING PERFORMED AT [facility]. ORIGINAL REPORT ON FILE IN LAB CONTAINS ADDITIONAL TEST SITE INFORMATION. Performed By: #### L 3410.9992 #### [facility] [address] [place] [address]. [place], [address] L3410.9992on 09-05-2024 [facility]. COMMENT Normal . [facility] Comment on above: Order Comment: [id number] TRAMADOL URINE SCREEEN RT Result Comment: Test Ordered: [id number] Tramadol, Urine Tramadol Screen, Urine Note: ng/mL UI See Final Results Reference Range: Xsdtaq=664 Tramadol Positive [A ] UI Reference Range: Kpdjlb=801 Tramadol Conf, MS, UR >[address] ng/mL UI Reference Range: Gxegdg=477 Tramadol detected; this finding can be consistent with use of medications that include Ultram, Topalgic, Tradol, Zydol, or generic formulations. Drugs listed are hvac sales representative of common sources of the compound detected and are not intended to include all possible sources. Please Note: Comment UI Reference Range: . Drug test results should be interpreted in the context of clinical information. Patient metabolic variables, specific drug chemistry, and specimen characteristics can affect test outcome. Technical consultation is available if a test result is inconsistent with an expected outcome. Email: [email or web address] Performed at: [address] [id number] [employer] Administrator: Alessandra Garibay PhD, Phone: [phone] Performed at: [address] [id number] [employer] Administrator: Kody Corbin PhD, Phone: [phone] Performed By: #### L 400, M1.2199, L3410.9992 #### [facility] [address] [place], [address] Urine Cultureon 08-31-2024 URC #1, 2 Below infectio n level. GNR lactose chemical project engineer [place] Count <1000 Mixed Gram Positive Organisms Mixed Gram Positive Organisms MIXC Mixed contaminants. Submit a new specimen if indicated. Normal [facility] Comment on above: Performed By: #### L 400.2010, , L3410.9992 #### [facility] [address] [place], [address] Bilirubin Test strip Ql (U)O rdered By: Cuba Lewis on 08-29-2024 Bilirubin Ql (U) Negative Negative [facility] Ketones Test strip Ql (U)Ord ered By: Cuba Lewis on 08-29-2024 Ketones Ql (U) 5 mg/dl High Negative [facility] Nitrite Test strip Ql (U)Ord ered By: Cuba Lewis on 08-29-2024 Nitrite Ql (U) Negative Negative [facility] Protein Test strip Ql (U)Ord ered By: Cuba Lewis on 08-29-2024 Protein Ql (U) 30 mg/dl High Negative [facility] Urinalysis, Routine (Dipstic k)on 08-29-2024 BILIRUBIN URINE Negative Normal Negative [facility] Comment on above: Order Comment: CLEAN CATCH Performed By: #### L 400.2010, , L3410.9992 #### [facility] [address] [place], [address] Clarity (U) Sl. Cloudy Normal Clear [facility] Comment on above: Order Comment: CLEAN CATCH Performed By: #### L 400.2010, , L3410.9992 #### [facility] [address] [place], [address] Color (U) Yellow Normal Yellow [facility] Comment on above: Order Comment: CLEAN CATCH Performed By: #### L 400.2010, , L3410.9992 #### [facility] [address] [place], [address] GLUCOSE, UR Normal Normal Normal [facility] Comment on above: Order Comment: CLEAN CATCH Performed By: #### L 400.2010, , L3410.9992 #### [facility] [address] [place], [address] KETONE UR 5 mg/dl Abnormal Negative [facility] Comment on above: Order Comment: CLEAN CATCH Performed By: #### L 400.2010, , L3410.9992 #### [facility] [address] [place], [address] LEUK ESTERASE 25 /ul Abnormal Negative [facility] Comment on above: Order Comment: CLEAN CATCH Performed By: #### L 400.2010, , L3410.9992 #### [facility] [address] [place], [address] Nitrite Ql (U) Negative Normal Negative [facility] Comment on above: Order Comment: CLEAN CATCH Performed By: #### L 400.2010, , L3410.9992 #### [facility] [address] [place], [address] OCCULT BLOOD-UR 10 /ul Abnormal Negative [facility] Comment on above: Order Comment: CLEAN CATCH Performed By: #### L 400.2010, , L3410.9992 #### [facility] [address] [place], [address] pH UR 6.0 Normal 5.0 - 8.0 [facility] Comment on above: Order Comment: CLEAN CATCH Performed By: #### L 400.2010, , L3410.9992 #### [facility] [address] [place], [address] PROT DIPSTX 30 mg/dl Abnormal Negative [facility] Comment on above: Order Comment: CLEAN CATCH Performed By: #### L 400.2010, M100.0, L3410.9992 #### [facility] [address] [place], [address] SP.GR. DIPSTX 1.020 Normal 1.002-1.030 [facility] Comment on above: Order Comment: CLEAN CATCH Performed By: #### L 400.2010, M100.0, L3410.9992 #### [facility] [address] [place], [address] UROBILI Normal Normal Normal [facility] Comment on above: Order Comment: CLEAN CATCH Performed By: #### L 400.2010, M100.0, L3410.9992 #### [facility] [address] [place], [address] Urine clarityOrdered By: Aubrie Lewis on 08-29-2024 Clarity (U) Sl. Cloudy Clear [facility] Urine color determinationOrd ered By: Cuba Lewis on 08-29-2024 Color (U) Yellow Yellow [facility] Urine cultureOrdered By: Aubrie Lewis on 08-29-2024 Bacteria identified Cx Nom (U) GNR lactose chemical project engineer Abnormal [facility] Bacteria identified Cx Nom (U) Positive Abnormal [facility] Urine glucose detectionOrder ed By: Cuba Lewis on 08-29-2024 Glucose Ql (U) Normal mg/dl Normal [facility] Urine leukocyte esterase det ection by dipstickOrdered By: Cuba Lweis on 08-29-2024 Leukocyte esterase Test strip Ql (U) 25 /ul High Negative [facility] Urine pHOrdered By: Cuba molina on 08-29-2024 pH (U) 6.0 [pH] 5.0 - 8.0 [facility] Urine specific gravity measu rementOrdered By: Cuba Lewis on 08-29-2024 Specific gravity (U) [Rel density] 1.020 1.002-1.030 [facility] Urine urobilinogen measureme ntOrdered By: Cuba Lewis on 08-29-2024 Urobilinogen Ql (U) Normal mg/dl Normal [facility] CNOVon 04-24-2024 CNOV Office Visit (UCWSTR ) EDIN BELTRAN ([id number]) 1980 F Date Time Provider Department 04/24/24 3:45 PM SARAH ROUSE [facility] During your visit today, we recorded the following information about you: Temperature Pulse Respiration Blood pressure 98.3 degrees 83/minute 16/minute 118/76 Weight 102.8 kg Sarah Rouse APRN.PECAN GROWER 04/24/2024 4:10 PM Signed Subjective HPI Nontoxic-appearing female presents urgent care chief plaint cough chest congestion sinus pressure fatigue body aches sore throat. Duration of symptoms 6 days. Associated symptoms listed above. Fatigue is worsening. Presents today for evaluation. Concerned about possible pneumonia. History of pneumonia in the past. OTC medications none recently. Denies any chest pain shortness of breath pleuritic pain or hemoptysis. No fevers. Past medical history prescription medications allergies reviewed. .Patient presents with: Cough: Cough, chest congestion, sinus pressure, fatigue, bodyaches and ST x 6 days PAST MEDICAL HISTORY Diagnosis Date Headaches due to old head injury PAST SURGICAL HISTORY Procedure Laterality Date APPENDECTOMY LAPAROSCOPY SURG CHOLECYSTECTOMY Cholecystectomy, lap ALLERGIES Sulfa (Sulfonamide Antibiotics) MEDICATIONS codeine-guaiFENesin (GUAIFENESIN AC) 10-100 mg/5 mL syrup Take 5 mL by mouth three times daily as needed. ALPRAZolam (XANAX) 0.25 mg tablet Take 1 tablet by mouth at bedtime as needed. FLUoxetine (PROZAC) 10 mg capsule Take 1 capsule by mouth once daily. gabapentin (NEURONTIN) 300 mg capsule Take 300 mg by mouth twice daily. FAMILY HISTORY Problem Relation Age of Onset Heart Father 45 from [place]: estranged Coronary Artery Disease Sister 35 from heart issue: estraned Coronary Artery Disease Brother 42 from [place]: estranged Breast Cancer Sister Cancer Maternal Grandfather pancreatic Hypertension Maternal Grandmother Psychiatry Mother panic disorder Psychiatry Maternal Aunt panic disorder Social History Tobacco Use Smoking status: Former Current packs/day: 0.00 Types: Cigarettes Start date: 12/18/1995 Quit date: 12/17/2000 Years since quittin.3 Smokeless tobacco: Never BP 118/76 Pulse 83 Temp 36.8 ?C (98.3 ?F) (Tympanic) Resp 16 Wt 102.8 kg (226 lb 10.1 oz) LMP 04/20/2018 SpO2 97% Review of Systems Constitutional: Positive for chills and malaise/fatigue. Negative for fever. HENT: Positive for congestion. Negative for ear discharge, ear pain, sinus pain and sore throat. Eyes: Negative for blurred vision, pain, discharge and redness. Respiratory: Positive for cough. Negative for hemoptysis, sputum production, shortness of breath, wheezing and stridor. Cardiovascular: Negative for chest pain. Gastrointestinal: Negative for abdominal pain, diarrhea, nausea and vomiting. Musculoskeletal: Positive for myalgias. Skin: Negative for itching and rash. Neurological: Positive for headaches. Negative for dizziness. Objective Physical Exam Constitutional: General: She is not in acute distress. Appearance: She is not diaphoretic. HENT: Head: Normocephalic. Jaw: No trismus, tenderness, swelling or pain on movement. Nose: Congestion present. Mouth/Throat: Mouth: Mucous membranes are moist. Pharynx: Oropharynx is clear. Uvula midline. No pharyngeal swelling, oropharyngeal exudate, posterior oropharyngeal erythema or uvula swelling. Eyes: Conjunctiva/sclera: Conjunctivae normal. Pupils: Pupils are equal, round, and reactive to light. Cardiovascular: Rate and Rhythm: Normal rate and regular rhythm. Heart sounds: Normal heart sounds. Pulmonary: Effort: Pulmonary effort is normal. No tachypnea, accessory muscle usage or respiratory distress. Breath sounds: Normal breath sounds. No stridor. No wheezing, rhonchi or rales. Abdominal: General: There is no distension. Palpations: Abdomen is soft. Tenderness: There is no abdominal tenderness. There is no guarding or rebound. Musculoskeletal: Cervical back: Normal range of motion and neck supple. No edema, erythema, rigidity or tenderness. No pain with movement. Normal range of motion. Lymphadenopathy: Cervical: No cervical adenopathy. Skin: General: Skin is warm and dry. Neurological: Mental Status: She is alert and oriented to person, place, and time. ASSESSMENT/PLAN: 1. Acute cough - ICD9: 786.2, ICD10: R05.1 (primary diagnosis) - XR CHEST 2V FRONTAL/LAT 2. Viral illness - ICD9: 079.99, ICD10: B34.9 - Discussed viral etiology and rationale for treatment. - Symptomatic treatment with prn analgesia - Supportive care with fluids and rest IMPRESSION: No acute radiographic abnormalit Chest x-ray unremarkable. Treat as viral etiology. Patient was educated on supportive therapies. Patient will follow up with primary care provider as needed. Patie (more content not included)... Normal [facility] XR CHEST 2V FRONTAL/LATon XR CHEST 2V FRONTAL/LAT * * *Final Repor t* * * DATE OF EXAM: Apr 24 2024 3:57PM WOX [id number] - XR CHEST 2V FRONTAL/LAT / PROCEDURE REASON: Acute cough * * * * Physician Interpretation * * * * EXAMINATION: CHEST RADIOGRAPH (2 VIEW FRONTAL and LATERAL) CLINICAL HISTORY: Acute cough MQ: XC2_6 EXAM DATE/TIME: 04/24/2024 3:57 PM COMPARISON: Chest x-ray dated 02/21/2014 RESULT: Lines, tubes, and devices: None. Lungs and pleura: No consolidation. No lung mass. No pleural effusion. No pneumothorax. Cardiomediastinal silhouette: Normal cardiomediastinal silhouette. Bones and soft tissues: Mild degenerative changes IMPRESSION: No acute radiographic abnormality. Chiropractic Neurologist: MEGHNA Transcribe Date/Time: Apr 24 2024 3:57P Dictated by : MELANY HERMAN MD This examination was interpreted and the report reviewed and electronically signed by: MELANY HERMAN MD on Apr 24 2024 3:58PM EST [id number] Normal [facility] XR Chest PA and Lateralon Radiology Study observation (narrative) Gillian kelley [facility] IMPRESSION: No acute radiographic abnormality. Chiropractic Neurologist: MEGHNA Transcribe Date/Time: Apr 24 2024 3:57P Dictated by : MELANY HERMAN MD This examination was interpreted and the report reviewed and electronically signed by: MELANY HERMAN MD on Apr 24 2024 3:58PM EST DIVISION OF RADIOLOGY * * *Final Report* * * DATE OF EXAM: Apr 24 2024 3:57PM WOX [id number] - XR CHEST 2V FRONTAL/LAT / PROCEDURE REASON: Acute cough * * * * Physician Interpretation * * * * EXAMINATION: CHEST RADIOGRAPH (2 VIEW FRONTAL & LATERAL) CLINICAL HISTORY: Acute cough MQ: XC2_6 EXAM DATE/TIME: 04/24/2024 3:57 PM COMPARISON: Chest x-ray dated 02/21/2014 RESULT: Lines, tubes, and devices: None. Lungs and pleura: No consolidation. No lung mass. No pleural effusion. No pneumothorax. Cardiomediastinal silhouette: Normal cardiomediastinal silhouette. Bones and soft tissues: Mild degenerative changes DIVISION OF RADIOLOGY Provider, [facility] - 04/24/2024 * * *Final Report* * * DATE OF EXAM: Apr 24 2024 3:57PM WOX [id number] - XR CHEST 2V FRONTAL/LAT / PROCEDURE REASON: Acute cough * * * * Physician Interpretation * * * * EXAMINATION: CHEST RADIOGRAPH (2 VIEW FRONTAL & LATERAL) CLINICAL HISTORY: Acute cough MQ: [id number] EXAM DATE/TIME: 04/24/2024 3:57 PM COMPARISON: Chest x-ray dated 02/21/2014 RESULT: Lines, tubes, and devices: None. Lungs and pleura: No consolidation. No lung mass. No pleural effusion. No pneumothorax. Cardiomediastinal silhouette: Normal cardiomediastinal silhouette. Bones and soft tissues: Mild degenerative changes IMPRESSION IMPRESSION: No acute radiographic abnormality. Chiropractic Neurologist: [facility] Transcribe Date/Time: Apr 24 2024 3:57P Dictated by : MELANY HERMAN MD This examination was interpreted and the report reviewed and electronically signed by: MELANY HERMAN MD on Apr 24 2024 3:58PM EST [facility] XR Chest PA and LateralOrder ed By: [facility] Provider on 04-24-2024 [facility] Basophil percentageOrdered B y: Cuba Lewis on 07-14-2023 Bilirubin [Mass/Vol] 0.90 mg/dL 0.20-1.00 [facility] Comment on above: For patients on eltr ombopag therapy, use of Dimension [place] TBIL is not recommended. Chloride [Moles/Vol] 106 mmol/L 98-107 [facility] Cholesterol [Mass/Vol] 209 mg/dL <200 [facility] Comment on above: <200 mg/dL Desirable 200-240 mg/dL Borderline >240 mg/dL High Risk Glucose [Mass/Vol] 94 mg/dL 74-106 [facility] Potassium [Moles/Vol] 4.0 mmol/L 3.5-5.1 [facility] Protein [Mass/Vol] 7.5 g/dL 6.4-8.2 [facility] Sodium [Moles/Vol] 136 mmol/L 136-145 [facility] Triglyceride [Mass/Vol] 96 mg/dL <199 [facility] Comment on above: The drugs N-Acetylcy steine and Metamizole may falsely depress this assay.Serum Triglycerides Reference Interval Normal <150 mg/dL Borderline high 150 - 199 mg/dL High 200 - 499 mg/dL Very High > or = 500 mg/dL Laboratory - Chemistry and C hemistry - challengeOrdered By: Cuba Lewis on 07-14-2023 Albumin/Globulin [Mass ratio] 0.8 {ratio} 0.9-2.4 [facility] ALP [Catalytic activity/Vol] 82 U/L 45-117 [facility] ALT [Catalytic activity/Vol] 14 U/L 13-56 [facility] Cholesterol in HDL [Mass/Vol] 49 mg/dL >40 [facility] Comment on above: The drugs N-Acetylcy steine and Metamizole may falsely depress this assay. Reference Range HDL <40 mg/dL Low HDL Cholesterol HDL >or= 60 mg/dL High HDL Cholesterol Cholesterol in LDL [Mass/Vol] 141 mg/dL 0-130 [facility] CO2 [Moles/Vol] 25.0 mmol/L 21.0-32.0 [facility] Globulin (S) [Mass/Vol] 4.1 g/dL 2.2-4.2 [facility] Urea nitrogen/Creatinine [Mass ratio] 14.1 mg/mg 10-20 [facility] No Panel InformationOrdered By: Cuba Lewis on 07-14-2023 Estimated GFR (MDRD) Amer 103 mL/min >60 [facility] Comment on above: GFR Calc Estimated GFR (MDRD) Non-Af Amer 85 mL/min >60 [facility] Comment on above: Non- GFR Calc VLDL Cholesterol 19 mg/dL 5-40 [facility] Serum or plasma calcium lucretia urement (mass/volume)Ordered By: Cuba Lewis on 07-14-2023 Calcium [Mass/Vol] 8.6 mg/dL 8.5-10.1 [facility] Serum or plasma creatinine m easurement (mass/volume)Ordered By: Cuba Lewis on 07-14-2023 Creatinine [Mass/Vol] 0.78 mg/dL 0.55-1.02 [facility] Comment on above: The validity of the calculated GFR & GFRAA in patients over 70 years has not been determined. Clinical correlation is essential. Serum or plasma urea nitroge n measurement (mass/volume)Ordered By: Cuba Lewis on 07-14-2023 Urea nitrogen [Mass/Vol] 11 mg/dL 7-18 [facility] Thin prep Papanicolaou smear with manual screeningOrdered By: Cuba Lewis on 07-14-2023 Thin prep Papanicolaou smear with manual screening 3.4 g/dL 3.2-5.0 [facility] Thin prep Papanicolaou smear with manual screening 10 U/L 15-37 [facility] Thin prep Papanicolaou smear with manual screening 5 5-15 [facility] Absolute lymphocyte countOrd ered By: Cuba Lewis on 12-26-2022 Lymphocytes Auto (Unsp spec) [#/Vol] 1.78 10*3/uL 0.83-4.51 [facility] Basophil percentageOrdered B y: Cuba Lewis on 12-26-2022 Basophils/100 WBC (Bld) 0.7 % 0-1 [facility] Bilirubin [Mass/Vol] 1.30 mg/dL 0.20-1.00 [facility] Comment on above: For patients on eltr ombopag therapy, use of Dimension [place] TBIL is not recommended. Chloride [Moles/Vol] 103 mmol/L 98-107 [facility] Cholesterol [Mass/Vol] 207 mg/dL <200 [facility] Comment on above: <200 mg/dL Desirable 200-240 mg/dL Borderline >240 mg/dL High Risk Eosinophils/100 WBC (Bld) 3.3 % 0-5 [facility] Glucose [Mass/Vol] 80 mg/dL 74-106 [facility] Neutrophils (Bld) [#/Vol] 5.9 10*3/uL 2.0-7.7 [facility] Neutrophils/100 WBC (Bld) 68.7 % 47-70 [facility] Potassium [Moles/Vol] 3.9 mmol/L 3.5-5.1 [facility] Comment on above: Slight Hemolysis, Re sult may be falsely increased. Protein [Mass/Vol] 8.2 g/dL 6.4-8.2 [facility] Sodium [Moles/Vol] 133 mmol/L 136-145 [facility] Triglyceride [Mass/Vol] 159 mg/dL <199 [facility] Comment on above: The drugs N-Acetylcy steine and Metamizole may falsely depress this assay.Serum Triglycerides Reference Interval Normal <150 mg/dL Borderline high 150 - 199 mg/dL High 200 - 499 mg/dL Very High > or = 500 mg/dL WBC (Bld) [#/Vol] 8.6 10*3/uL 4.4-11.0 [facility] Blood erythrocytes count (nu mber/volume)Ordered By: Cuba Lewis on 12-26-2022 RBC (Bld) [#/Vol] 4.84 10*6/uL 4.2-5.4 [facility] Blood hemoglobin measurement (mass/volume)Ordered By: Cuba Lewis on 12-26-2022 Hemoglobin (Bld) [Mass/Vol] 13.1 g/dL 12.0-15.0 [facility] Blood lymphocytes/100 leukoc ytesOrdered By: Cuba Lewis on 12-26-2022 Lymphocytes/100 WBC (Bld) 20.7 % 19-41 [facility] Blood monocytes/100 leukocyt esOrdered By: Cuba Lewis on 12-26-2022 Monocytes/100 WBC (Bld) 6.0 % 0-10 [facility] Blood platelet mean volumeOr dered By: Cuba Lewis on 12-26-2022 Platelet mean volume (Bld) [Entitic vol] 12.9 fL 6.2-12.0 [facility] Determination of erythrocyte mean corpuscular volume (MCV)Ordered By: Cuba Lewis on 12-26-2022 MCV (RBC) [Entitic vol] 86.0 fL 81-99 [facility] Hematocrit Auto (Bld) [Volum e fraction]Ordered By: Cuba Lewis on 12-26-2022 Hematocrit (Bld) [Volume fraction] 41.6 % 37-47 [facility] Laboratory - Chemistry and C hemistry - challengeOrdered By: Cuba Lewis on 12-26-2022 ALP [Catalytic activity/Vol] 105 U/L 45-117 [facility] ALT [Catalytic activity/Vol] 30 U/L 13-56 [facility] CO2 [Moles/Vol] 21.0 mmol/L 21.0-32.0 [facility] Globulin (S) [Mass/Vol] 4.7 g/dL 2.2-4.2 [facility] Urea nitrogen/Creatinine [Mass ratio] 10.8 mg/mg 10-20 [facility] Laboratory - Hematology and Cell countsOrdered By: Cuba Lewis on 12-26-2022 Erythrocyte distribution width (RBC) [Entitic vol] 47.4 fL 35.1-43.9 [facility] Erythrocyte distribution width (RBC) [Ratio] 15.0 % 11.6-14.6 [facility] Immature granulocytes/100 WBC (Bld) 0.600 % 0.0-0.9 [facility] Comment on above: IG% - Immature Granu locytes (promyelocytes, myelocytes and metamyelocytes) > 1% indicates that a LEFT SHIFT is Present. MCH (RBC) [Entitic mass] 27.1 pg 27.0-32.0 [facility] Nucleated RBC/100 WBC (Bld) [Ratio] 0 % 0-5 [facility] MCHC Auto (RBC) [Mass/Vol]Or dered By: Cuba Lewis on 12-26-2022 MCHC (RBC) [Mass/Vol] 31.5 g/dL 32-36 [facility] No Panel InformationOrdered By: Cuba Lewis on 12-26-2022 Estimated GFR (MDRD) Amer 96 mL/min >60 [facility] Comment on above: GFR Calc Estimated GFR (MDRD) Non-Af Amer 79 mL/min >60 [facility] Comment on above: Non- GFR Calc Platelets bldOrdered By: Aubrie Lewis on 12-26-2022 Platelets (Bld) [#/Vol] 245 10*3/uL 150-450 [facility] Serum or plasma albumin lucretia urement (mass/volume)Ordered By: Cuba Lewis on 12-26-2022 Albumin [Mass/Vol] 3.5 g/dL 3.2-5.0 [facility] Serum or plasma albumin/glob ulin mass ratioOrdered By: Cuba Lewis on 12-26-2022 Albumin/Globulin [Mass ratio] 0.7 {ratio} 0.9-2.4 [facility] Serum or plasma calcium lucretia urement (mass/volume)Ordered By: Cuba Lewis on 12-26-2022 Calcium [Mass/Vol] 8.9 mg/dL 8.5-10.1 [facility] Serum or plasma cholesterol in HDL measurement (mass/volume)Ordered By: Cuba Lewis on 12-26-2022 Cholesterol in HDL [Mass/Vol] 38 mg/dL >40 [facility] Comment on above: The drugs N-Acetylcy steine and Metamizole may falsely depress this assay. Reference Range HDL <40 mg/dL Low HDL Cholesterol HDL >or= 60 mg/dL High HDL Cholesterol Serum or plasma cholesterol in VLDL measurement (mass/volume)Ordered By: Cuba Lewis on 12-26-2022 Cholesterol in VLDL [Mass/Vol] 32 mg/dL 5-40 [facility] Serum or plasma creatinine m easurement (mass/volume)Ordered By: Cuba Lewis on 12-26-2022 Creatinine [Mass/Vol] 0.83 mg/dL 0.55-1.02 [facility] Comment on above: The validity of the calculated GFR & GFRAA in patients over 70 years has not been determined. Clinical correlation is essential. Serum or plasma low density lipoprotein (LDL) cholesterol measurement (mass/volume)Ordered By: Cuba Lewis on 12-26-2022 Cholesterol in LDL [Mass/Vol] 137 mg/dL 0-130 [facility] Serum or plasma urea nitroge n measurement (mass/volume)Ordered By: Cuba Lewis on 12-26-2022 Urea nitrogen [Mass/Vol] 9 mg/dL 7-18 [facility] Thin prep Papanicolaou smear with manual screeningOrdered By: Cuba Lewis on 12-26-2022 Thin prep Papanicolaou smear with manual screening 19 U/L 15-37 [facility] Comment on above: Slight Hemolysis, Re sult may be falsely increased. Thin prep Papanicolaou smear with manual screening 9 5-15 [facility] Absolute lymphocyte countOrd ered By: Dr. Lewis on 07-08-2022 Lymphocytes Auto (Unsp spec) [#/Vol] 1.56 10*3/uL 0.83-4.51 [facility] Basophil percentageOrdered B y: Dr. Lewis on 07-08-2022 Basophils/100 WBC (Bld) 0.7 % 0-1 [facility] Eosinophils/100 WBC (Bld) 1.3 % 0-5 [facility] Neutrophils (Bld) [#/Vol] 12.2 10*3/uL 2.0-7.7 [facility] Neutrophils/100 WBC (Bld) 81.5 % 47-70 [facility] WBC (Bld) [#/Vol] 15.0 10*3/uL 4.4-11.0 [facility] Blood erythrocytes count (nu mber/volume)Ordered By: Dr. Lewis on 07-08-2022 RBC (Bld) [#/Vol] 4.97 10*6/uL 4.2-5.4 [facility] Blood hemoglobin measurement (mass/volume)Ordered By: Dr. Lewis on 07-08-2022 Hemoglobin (Bld) [Mass/Vol] 13.5 g/dL 12.0-15.0 [facility] Blood lymphocytes/100 leukoc ytesOrdered By: Dr. Lewis on 07-08-2022 Lymphocytes/100 WBC (Bld) 10.4 % 19-41 [facility] Blood monocytes/100 leukocyt esOrdered By: Dr. Lewis on 07-08-2022 Monocytes/100 WBC (Bld) 4.5 % 0-10 [facility] Blood platelet mean volumeOr dered By: Dr. Lewis on 07-08-2022 Platelet mean volume (Bld) [Entitic vol] 11.7 fL 6.2-12.0 [facility] Determination of erythrocyte mean corpuscular volume (MCV)Ordered By: Dr. Lewis on 07-08-2022 MCV (RBC) [Entitic vol] 85.5 fL 81-99 [facility] Hematocrit Auto (Bld) [Volum e fraction]Ordered By: Dr. Lewis on 07-08-2022 Hematocrit (Bld) [Volume fraction] 42.5 % 37-47 [facility] Laboratory - Hematology and Cell countsOrdered By: Dr. Lewis on 07-08-2022 Erythrocyte distribution width (RBC) [Entitic vol] 46.5 fL 35.1-43.9 [facility] Erythrocyte distribution width (RBC) [Ratio] 14.9 % 11.6-14.6 [facility] Immature granulocytes/100 WBC (Bld) 1.600 % 0.0-0.9 [facility] Comment on above: IG% - Immature Granu locytes (promyelocytes, myelocytes and metamyelocytes) > 1% indicates that a LEFT SHIFT is Present. MCH (RBC) [Entitic mass] 27.2 pg 27.0-32.0 [facility] Nucleated RBC/100 WBC (Bld) [Ratio] 0 % 0-5 [facility] MCHC Auto (RBC) [Mass/Vol]Or dered By: Dr. Lewis on 07-08-2022 MCHC (RBC) [Mass/Vol] 31.8 g/dL 32-36 [facility] Platelets bldOrdered By: Dr. Lewis on 07-08-2022 Platelets (Bld) [#/Vol] 344 10*3/uL 150-450 [facility] Absolute lymphocyte countOrd ered By: Dr. Lewis on 06-07-2022 Lymphocytes Auto (Unsp spec) [#/Vol] 2.19 10*3/uL 0.83-4.51 [facility] Basophil percentageOrdered B y: Dr. Lewis on 06-07-2022 Basophils/100 WBC (Bld) 1.0 % 0-1 [facility] Chloride [Moles/Vol] 100 mmol/L 98-107 [facility] Cholesterol [Mass/Vol] 243 mg/dL <200 [facility] Comment on above: <200 mg/dL Desirable 200-240 mg/dL Borderline >240 mg/dL High Risk Eosinophils/100 WBC (Bld) 4.0 % 0-5 [facility] Glucose [Mass/Vol] 89 mg/dL 74-106 [facility] Neutrophils (Bld) [#/Vol] 5.6 10*3/uL 2.0-7.7 [facility] Neutrophils/100 WBC (Bld) 62.9 % 47-70 [facility] Potassium [Moles/Vol] 3.6 mmol/L 3.5-5.1 [facility] Sodium [Moles/Vol] 135 mmol/L 136-145 [facility] Triglyceride [Mass/Vol] 197 mg/dL <199 [facility] Comment on above: The drugs N-Acetylcy steine and Metamizole may falsely depress this assay.Serum Triglycerides Reference Interval Normal <150 mg/dL Borderline high 150 - 199 mg/dL High 200 - 499 mg/dL Very High > or = 500 mg/dL WBC (Bld) [#/Vol] 8.9 10*3/uL 4.4-11.0 [facility] Blood erythrocytes count (nu mber/volume)Ordered By: Dr. Lewis on 06-07-2022 RBC (Bld) [#/Vol] 5.05 10*6/uL 4.2-5.4 [facility] Blood hemoglobin measurement (mass/volume)Ordered By: Dr. Lewis on 06-07-2022 Hemoglobin (Bld) [Mass/Vol] 13.6 g/dL 12.0-15.0 [facility] Blood lymphocytes/100 leukoc ytesOrdered By: Dr. Lewis on 06-07-2022 Lymphocytes/100 WBC (Bld) 24.6 % 19-41 [facility] Blood monocytes/100 leukocyt esOrdered By: Dr. Lewis on 06-07-2022 Monocytes/100 WBC (Bld) 6.7 % 0-10 [facility] Blood platelet mean volumeOr dered By: Dr. Lewis on 06-07-2022 Platelet mean volume (Bld) [Entitic vol] 11.7 fL 6.2-12.0 [facility] Determination of erythrocyte mean corpuscular volume (MCV)Ordered By: Dr. Lewis on 06-07-2022 MCV (RBC) [Entitic vol] 84.8 fL 81-99 [facility] Hematocrit Auto (Bld) [Volum e fraction]Ordered By: Dr. Lewis on 06-07-2022 Hematocrit (Bld) [Volume fraction] 42.8 % 37-47 [facility] Laboratory - Chemistry and C hemistry - challengeOrdered By: Dr. Lewis on 06-07-2022 CO2 [Moles/Vol] 25.0 mmol/L 21.0-32.0 [facility] Urea nitrogen/Creatinine [Mass ratio] 16.5 mg/mg 10-20 [facility] - Hematology and Cell countsOrdered By: Dr. Lewis on 06-07-2022 Erythrocyte distribution width (RBC) [Entitic vol] 44.4 fL 35.1-43.9 [facility] Erythrocyte distribution width (RBC) [Ratio] 14.4 % 11.6-14.6 [facility] Immature granulocytes/100 WBC (Bld) 0.800 % 0.0-0.9 [facility] Comment on above: IG% - Immature Granu locytes (promyelocytes, myelocytes and metamyelocytes) > 1% indicates that a LEFT SHIFT is Present. MCH (RBC) [Entitic mass] 26.9 pg 27.0-32.0 [facility] Nucleated RBC/100 WBC (Bld) [Ratio] 0 % 0-5 [facility] MCHC Auto (RBC) [Mass/Vol]Or dered By: Dr. Lewis on 06-07-2022 MCHC (RBC) [Mass/Vol] 31.8 g/dL 32-36 [facility] No Panel InformationOrdered By: Dr. Lewis on 06-07-2022 Estimated GFR (MDRD) Amer 102 mL/min >60 [facility] Comment on above: GFR Calc Estimated GFR (MDRD) Non-Af Amer 84 mL/min >60 [facility] Comment on above: Non- GFR Calc Vitamin D 25-Hydroxy 22.7 ng/mL [facility] Comment on above: Vitamin D 25(OH) Sta tus Range Deficiency <20 ng/mL (50nmol/L) Insufficiency 20 - 30 ng/mL (50 - 75 nmol/L) Sufficiency 30 - 100 ng/mL (75 - 250 nmol/L) Toxicity >100 ng/mL (>250 nmol/L) Platelets bldOrdered By: Dr. Lewis on 06-07-2022 Platelets (Bld) [#/Vol] 372 10*3/uL 150-450 [facility] Serum or plasma calcium lucretia urement (mass/volume)Ordered By: Dr. Lewis on 06-07-2022 Calcium [Mass/Vol] 9.0 mg/dL 8.5-10.1 [facility] Serum or plasma cholesterol in HDL measurement (mass/volume)Ordered By: Dr. Lewis on 06-07-2022 Cholesterol in HDL [Mass/Vol] 41 mg/dL >40 [facility] Comment on above: The drugs N-Acetylcy steine and Metamizole may falsely depress this assay. Reference Range HDL <40 mg/dL Low HDL Cholesterol HDL >or= 60 mg/dL High HDL Cholesterol Serum or plasma cholesterol in VLDL measurement (mass/volume)Ordered By: Dr. Lewis on 06-07-2022 Cholesterol in VLDL [Mass/Vol] 39 mg/dL 5-40 [facility] Serum or plasma creatinine m easurement (mass/volume)Ordered By: Dr. Lewis on 06-07-2022 Creatinine [Mass/Vol] 0.79 mg/dL 0.55-1.02 [facility] Comment on above: The validity of the calculated GFR & GFRAA in patients over 70 years has not been determined. Clinical correlation is essential. Serum or plasma low density lipoprotein (LDL) cholesterol measurement (mass/volume)Ordered By: Dr. Lewis on 06-07-2022 Cholesterol in LDL [Mass/Vol] 163 mg/dL 0-130 [facility] Serum or plasma urea nitroge n measurement (mass/volume)Ordered By: Dr. Lewis on 06-07-2022 Urea nitrogen [Mass/Vol] 13 mg/dL 7-18 [facility] Thin prep Papanicolaou smear with manual screeningOrdered By: Dr. Lewis on 06-07-2022 Thin prep Papanicolaou smear with manual screening 10 5-15 [facility] Culture, urineon 07-06-2021 Bacteria identified Cx Nom (U) Presumptive Lactobacillus sp. [facility] Work Phone: Vital Signs Date Time Vital Sign Value Performing Clinician Faci lity 04-24-2024 15:24-0500 Body temperature 98.29 [degF] [facility] [employer] Work Phone: [facility] 04-24-2024 15:24-0500 Body weight 102.8 kg [facility] [employer] Work Phone: [facility] 04-24-2024 15:24-0500 Diastolic blood pressure 76 mm[Hg] [facility] [employer] Work Phone: [facility] 04-24-2024 15:24-0500 Heart rate 83 /min [facility] [employer] Work Phone: [facility] 04-24-2024 15:24-0500 Respiratory rate 16 /min [facility] [employer] Work Phone: [facility] 04-24-2024 15:24-0500 SaO2% (BldA) [Mass fraction] 97 % [facility] [employer] Work Phone: [facility] 04-24-2024 15:24-0500 Systolic blood pressure 118 mm[Hg] [facility] [employer] Work Phone: [facility] Encounters Encounter Date Encounter Type Care Provider Facility Start: 11-22-2024 End: 11-22-[address] Cuba Lewis MD Work Phone: [facility] [place] Start: 11-22-2024 End: 11-22-[address] Trevor Everett MD -[facility] [place] Work Phone: Start: 11-22-2024 End: 11-22-2024 ambulatory Trevor Everett Facility:[facility] Start: 08-29-2024 End: 08-29-[address] Cuba Lewis MD Work Phone: [facility] Work Phone: Start: 08-29-2024 End: 08-29-[address] Cuba Lewis MD -[facility] Work Phone: Start: 08-29-2024 End: 08-29-2024 ambulatory Cuba Lewis Facility:[facility] Start: 04-24-2024 End: 04-24-2024 ambulatory CUBA LEWIS Facility:[facility] Start: 04-24-2024 End: 04-24-2024 Office outpatient visit 15 minutes aSrah Rouse APRN.[facility] Work Phone: [facility] Comment on above: Acute cough (Primary Dx); Viral illness Start: 04-24-2024 End: 04-24-2024 Subsequent hospital visit by physician [facility] Work Phone: Radiology Comment on above: Acute cough [R05.1] Start: 07-24-2023 End: 07-24-2023 ambulatory [facility] Work Phone: Start: 07-24-2023 End: 07-24-2023 Patient encounter procedure [facility] Work Phone: Start: 07-14-2023 End: 07-14-2023 ambulatory [facility] Work Phone: Start: 07-14-2023 End: 07-14-2023 Patient encounter procedure [facility] Work Phone: Start: 12-26-2022 End: 12-26-2022 ambulatory [facility] Work Phone: Start: 12-26-2022 End: 12-26-2022 Patient encounter procedure [facility] Work Phone: Start: 07-08-2022 End: 07-08-2022 ambulatory [facility] Work Phone: Start: 07-08-2022 End: 07-08-2022 [facility] Start: 06-07-2022 End: 06-07-2022 ambulatory [facility] Work Phone: Start: 06-07-2022 End: 06-07-2022 Patient encounter procedure [facility], [facility] Start: 07-06-2021 End: 07-06-2021 Patient encounter procedure [facility]-Laboratory, Specimen Procedures Date Procedure Procedure Detail Performing Clinician Start: 11-22-2024 Methadone measuremen t, urine Dr. Cuba Lewis MD Work Phone: Start: 08-29-[address] Cuba cramer MD Work Phone: Comment on above: TEST RESULTS LIMITSC annabinoid, Urine Cannabinoid Positive Cutoff=20 Carboxy THC Conf, MS, UR 378 ng/mL Cutoff=10 Please Note: Drug test results should be interpreted in the context of clinical information. Patient metabolic variables, specific drug chemistry, and specimen characteristics can affect test outcome. Technical consultation is available if a test result is inconsistent with an expected outcome. Email: [email or web address] TESTING PERFORMED AT [facility]. ORIGINAL REPORT ON FILE IN LAB CONTAINS ADDITIONAL TEST SITE INFORMATION. _ Start: 08-29-2024 Urnls dip stick/tabl et reagent auto microscopy Dr. Cuba Lewis MD Work Phone: Start: 08-29-[address] Cuba Lewis MD Work Phone: Start: 04-24-2024 Radiologic exam ches t 2 views Sarah Rouse APRN.[employer] Work Phone: Start: 07-24-2023 MRI of cervical spine Start: 12-26-2022 X-ray of cervical spine Start: 07-08-2022 Plain chest X-ray Start: 07-06-2021 Urine culture History of appendectomy History of append ectomy History of cholecystectomy History of cholecystectomy Plan of Treatment Date Care Activity Detail Author Start: 05-20-2032 Urine microalbumin profile DTaP,Tdap,Td Vaccine (3 - Td or Tdap) [facility] Start: 08-29-2024 Procedure [facility] Start: 12-17-2023 Covid-19 Vaccine ( season) Covid-19 Vaccine () [facility] Start: 12-17-2023 Influenza vaccination Influenza Vacc ine (#1) [facility] Start: 08-16-2023 Diabetes Screening Diabetes Screenin g [facility] Start: 08-16-2023 Lipid panel Lipid Screening [facility] Start: 08-16-2023 Screening for malign ant neoplasm of colon [facility] Start: 2018 Screening for malign ant neoplasm of breast Mammogram Screening [facility] Start: 08-16-1999 Screening for malign ant neoplasm of cervix Cervical Cancer Screening [facility] Start: 1997 Hepatitis B Vaccine (1 of 3 - 19+ 3-dose series) Hepatitis B Vaccine (1 of 3 - 19+ 3-dose series) [facility] Start: 1996 Anxiety Screening Anxiety Screening [facility] Start: 1996 Depression Screening Depression Scre ening [facility] Start: 1996 Hepatitis C screening Hepatitis C Sc reening [facility] Start: 1996 HIV screening HIV Screening [facility] Procedure [facility] Immunizations Immunization Date Immunization Notes Care Provider Fa melonie 04-14-2009 tetanus toxoid, redu pilar diphtheria toxoid, and acellular pertussis vaccine, adsorbed Sarah Rouse APRN.CNP Work Phone: [facility] Payers Date Payer Category Payer Self-pay [id number] 2024 Unknown [employer] BLUE CARD PPO OOS [id number] 2024-Present [phone] [id number] [place] [address] PPO [id number] 2014 [id number] 2014 Unknown [id number] Unknown [id number] Unknown [id number] Social History Date Type Detail Facility Start: 06-24-2020 End: 06-24-2020 Tobacco smoking status IDIS Unknown if ever smoked [facility] Start: 1980 Sex Assigned At Female [facility] Start: 04-24-2024 [facility] Start: 12-18-1995 End: 12-17-2000 History of tobacco use Current smoker [facility] Start: 12-18-1995 End: 12-17-2000 History of tobacco use Cigarette Smoker [facility] Start: 04-24-2024 Tobacco use and exposure Smokeless tobacco non-user [facility] Start: 04-24-2024 Alcoholic beverage intake Not Asked [facility] Start: 03-25-2020 End: 04-24-2024 History of Social function [facility] Start: 03-25-2020 End: 04-24-2024 Tobacco use panel [facility] National Score (1-10 0), lower number is lower risk Not on file [facility] Start: 1980 Sex assigned at Not on file [facility] History of Present illness Narrative 04-24-2024 Isha Cramer RT(R) - 04/24/2024 4:00 PM EST Note Date & Type Note Facility 04-24-2024 History of Presen t illness Narrative Radiology Service Progress Note PATIENT NAME: Edin Beltran DATE OF SERVICE: April 24, 2024 TIME: 3:49 PM PATIENT IDENTITY VERIFICATION COMPLETED USING TWO (2) IDENTIFIERS: Name and Date of confirmed by patient verbally. FALL SCREENING: Has the patient had 2 falls in the last year or 1 fall with injury or currently using an Ambulatory Assistive Device (Walker, Cane, Wheelchair, Crutches, etc.)? No PATIENT GENDER DATA: Female. status: : No status: NO. PATIENT RELEVANT IMPLANT DATA REVIEWED: Not Applicable PATIENT PRESENTS WITH AN IMPLANTABLE OR ATTACHED SAS STATISTICAL PROGRAMMER: No RADIOLOGY DEPARTMENT: General X-ray: Exam(s) Completed: Chest X-Ray PERIPHERAL IV DATA: Not applicable SIGNED BY: RT Jeromy(R) April 24, 2024 3:49 PM documented in this encounter [facility] Progress note 04-24-2024 Note Date & Type Note Facility 04-24-2024 Note HNO ID: [id number] Author: ISHA CRAMER RT(R) Service: Radiology Author Type: Technologist Type: Progress Notes Filed: 04/24/2024 15:57 Note Text: Radiology Service Progress Note PATIENT NAME: Edin Beltran DATE OF SERVICE: April 24, 2024 TIME: 3:49 PM PATIENT IDENTITY VERIFICATION COMPLETED USING TWO (2) IDENTIFIERS: Name and Date of confirmed by patient verbally. FALL SCREENING: Has the patient had 2 falls in the last year or 1 fall with injury or currently using an Ambulatory Assistive Device (Walker, Cane, Wheelchair, Crutches, etc.)? No PATIENT GENDER DATA: Female. status: : No status: NO. PATIENT RELEVANT IMPLANT DATA REVIEWED: Not Applicable PATIENT PRESENTS WITH AN IMPLANTABLE OR ATTACHED SAS STATISTICAL PROGRAMMER: No RADIOLOGY DEPARTMENT: General X-ray: Exam(s) Completed: Chest X-Ray PERIPHERAL IV DATA: Not applicable SIGNED BY: RT Jeromy(R) April 24, 2024 3:49 PM [facility] Progress note 04-24-2024 Note Date & Type Note Facility 04-24-2024 Note HNO ID: [id number] Author: SARAH ROUSE APRN.PECAN GROWER Service: ? Author Type: Nurse Practitioner Type: Progress Notes Filed: 04/24/2024 16:10 Note Text: Subjective HPI Nontoxic-appearing female presents urgent care chief plaint cough chest congestion sinus pressure fatigue body aches sore throat. Duration of symptoms 6 days. Associated symptoms listed above. Fatigue is worsening. Presents today for evaluation. Concerned about possible pneumonia. History of pneumonia in the past. OTC medications none recently. Denies any chest pain shortness of breath pleuritic pain or hemoptysis. No fevers. Past medical history prescription medications allergies reviewed. .Patient presents with: Cough: Cough, chest congestion, sinus pressure, fatigue, bodyaches and ST x 6 days PAST MEDICAL HISTORY Diagnosis Date Headaches due to old head injury PAST SURGICAL HISTORY Procedure Laterality Date APPENDECTOMY LAPAROSCOPY SURG CHOLECYSTECTOMY Cholecystectomy, lap ALLERGIES Sulfa (Sulfonamide Antibiotics) MEDICATIONS codeine-guaiFENesin (GUAIFENESIN AC) 10-100 mg/5 mL syrup Take 5 mL by mouth three times daily as needed. ALPRAZolam (XANAX) 0.25 mg tablet Take 1 tablet by mouth at bedtime as needed. FLUoxetine (PROZAC) 10 mg capsule Take 1 capsule by mouth once daily. gabapentin (NEURONTIN) 300 mg capsule Take 300 mg by mouth twice daily. FAMILY HISTORY Problem Relation Age of Onset Heart Father 45 from [place]: estranged Coronary Artery Disease Sister 35 from heart issue: estraned Coronary Artery Disease Brother 42 from [place]: estranged Breast Cancer Sister Cancer Maternal Grandfather pancreatic Hypertension Maternal Grandmother Psychiatry Mother panic disorder Psychiatry Maternal Aunt panic disorder Social History Tobacco Use Smoking status: Former Current packs/day: 0.00 Types: Cigarettes Start date: 12/18/1995 Quit date: 12/17/2000 Years since quittin.3 Smokeless tobacco: Never BP 118/76 Pulse 83 Temp 36.8 ?C (98.3 ?F) (Tympanic) Resp 16 Wt 102.8 kg (226 lb 10.1 oz) LMP 04/20/2018 SpO2 97% Review of Systems Constitutional: Positive for chills and malaise/fatigue. Negative for fever. HENT: Positive for congestion. Negative for ear discharge, ear pain, sinus pain and sore throat. Eyes: Negative for blurred vision, pain, discharge and redness. Respiratory: Positive for cough. Negative for hemoptysis, sputum production, shortness of breath, wheezing and stridor. Cardiovascular: Negative for chest pain. Gastrointestinal: Negative for abdominal pain, diarrhea, nausea and vomiting. Musculoskeletal: Positive for myalgias. Skin: Negative for itching and rash. Neurological: Positive for headaches. Negative for dizziness. Objective Physical Exam Constitutional: General: She is not in acute distress. Appearance: She is not diaphoretic. HENT: Head: Normocephalic. Jaw: No trismus, tenderness, swelling or pain on movement. Nose: Congestion present. Mouth/Throat: Mouth: Mucous membranes are moist. Pharynx: Oropharynx is clear. Uvula midline. No pharyngeal swelling, oropharyngeal exudate, posterior oropharyngeal erythema or uvula swelling. Eyes: Conjunctiva/sclera: Conjunctivae normal. Pupils: Pupils are equal, round, and reactive to light. Cardiovascular: Rate and Rhythm: Normal rate and regular rhythm. Heart sounds: Normal heart sounds. Pulmonary: Effort: Pulmonary effort is normal. No tachypnea, accessory muscle usage or respiratory distress. Breath sounds: Normal breath sounds. No stridor. No wheezing, rhonchi or rales. Abdominal: General: There is no distension. Palpations: Abdomen is soft. Tenderness: There is no abdominal tenderness. There is no guarding or rebound. Musculoskeletal: Cervical back: Normal range of motion and neck supple. No edema, erythema, rigidity or tenderness. No pain with movement. Normal range of motion. Lymphadenopathy: Cervical: No cervical adenopathy. Skin: General: Skin is warm and dry. Neurological: Mental Status: She is alert and oriented to person, place, and time. ASSESSMENT/PLAN: 1. Acute cough - ICD9: 786.2, ICD10: R05.1 (primary diagnosis) - XR CHEST 2V FRONTAL/LAT 2. Viral illness - ICD9: 079.99, ICD10: B34.9 - Discussed viral etiology and rationale for treatment. - Symptomatic treatment with prn analgesia - Supportive care with fluids and rest IMPRESSION: No acute radiographic abnormalit Chest x-ray unremarkable. Treat as viral etiology. Patient was educated on supportive therapies. Patient will follow up with primary care provider as needed. Patient was instructed to immediately proceed to emergency room for any new, worsening, or symptoms lasting longer than anticipated. The patient's clinical presentation is otherwise unremarkable at this time. Based on exam and clinical finding, the patient is stable for discharge. Plan of care (more content not included)... [facility] History of Present illness Narrative 04-24-2024 Sarah Rouse, DARSHAN.[facility] - 04/24/2024 3:39 PM EST Note Date & Type Note Facility 04-24-2024 History of Presen t illness Narrative Subjective HPI Nontoxic-appearing female presents urgent care chief plaint cough chest congestion sinus pressure fatigue body aches sore throat. Duration of symptoms 6 days. Associated symptoms listed above. Fatigue is worsening. Presents today for evaluation. Concerned about possible pneumonia. History of pneumonia in the past. OTC medications none recently. Denies any chest pain shortness of breath pleuritic pain or hemoptysis. No fevers. Past medical history prescription medications allergies reviewed. .Patient presents with: Cough: Cough, chest congestion, sinus pressure, fatigue, bodyaches and ST x 6 days PAST MEDICAL HISTORY Diagnosis Date Headaches due to old head injury PAST SURGICAL HISTORY Procedure Laterality Date APPENDECTOMY LAPAROSCOPY SURG CHOLECYSTECTOMY Cholecystectomy, lap ALLERGIES Sulfa (Sulfonamide Antibiotics) MEDICATIONS codeine-guaiFENesin (GUAIFENESIN AC) 10-100 mg/5 mL syrup Take 5 mL by mouth three times daily as needed. ALPRAZolam (XANAX) 0.25 mg tablet Take 1 tablet by mouth at bedtime as needed. FLUoxetine (PROZAC) 10 mg capsule Take 1 capsule by mouth once daily. gabapentin (NEURONTIN) 300 mg capsule Take 300 mg by mouth twice daily. FAMILY HISTORY Problem Relation Age of Onset Heart Father 45 from [place]: estranged Coronary Artery Disease Sister 35 from heart issue: estraned Coronary Artery Disease Brother 42 from [place]: estranged Breast Cancer Sister Cancer Maternal Grandfather pancreatic Hypertension Maternal Grandmother Psychiatry Mother panic disorder Psychiatry Maternal Aunt panic disorder Social History Tobacco Use Smoking status: Former Current packs/day: 0.00 Types: Cigarettes Start date: 12/18/1995 Quit date: 12/17/2000 Years since quittin.3 Smokeless tobacco: Never BP 118/76 Pulse 83 Temp 36.8 C (98.3 F) (Tympanic) Resp 16 Wt 102.8 kg (226 lb 10.1 oz) LMP 04/20/2018 SpO2 97% Review of Systems Constitutional: Positive for chills and malaise/fatigue. Negative for fever. HENT: Positive for congestion. Negative for ear discharge, ear pain, sinus pain and sore throat. Eyes: Negative for blurred vision, pain, discharge and redness. Respiratory: Positive for cough. Negative for hemoptysis, sputum production, shortness of breath, wheezing and stridor. Cardiovascular: Negative for chest pain. Gastrointestinal: Negative for abdominal pain, diarrhea, nausea and vomiting. Musculoskeletal: Positive for myalgias. Skin: Negative for itching and rash. Neurological: Positive for headaches. Negative for dizziness. Objective Physical Exam Constitutional: General: She is not in acute distress. Appearance: She is not diaphoretic. HENT: Head: Normocephalic. Jaw: No trismus, tenderness, swelling or pain on movement. Nose: Congestion present. Mouth/Throat: Mouth: Mucous membranes are moist. Pharynx: Oropharynx is clear. Uvula midline. No pharyngeal swelling, oropharyngeal exudate, posterior oropharyngeal erythema or uvula swelling. Eyes: Conjunctiva/sclera: Conjunctivae normal. Pupils: Pupils are equal, round, and reactive to light. Cardiovascular: Rate and Rhythm: Normal rate and regular rhythm. Heart sounds: Normal heart sounds. Pulmonary: Effort: Pulmonary effort is normal. No tachypnea, accessory muscle usage or respiratory distress. Breath sounds: Normal breath sounds. No stridor. No wheezing, rhonchi or rales. Abdominal: General: There is no distension. Palpations: Abdomen is soft. Tenderness: There is no abdominal tenderness. There is no guarding or rebound. Musculoskeletal: Cervical back: Normal range of motion and neck supple. No edema, erythema, rigidity or tenderness. No pain with movement. Normal range of motion. Lymphadenopathy: Cervical: No cervical adenopathy. Skin: General: Skin is warm and dry. Neurological: Mental Status: She is alert and oriented to person, place, and time. ASSESSMENT/PLAN: 1. Acute cough - ICD9: 786.2, ICD10: R05.1 (primary diagnosis) - XR CHEST 2V FRONTAL/LAT 2. Viral illness - ICD9: 079.99, ICD10: B34.9 - Discussed viral etiology and rationale for treatment. - Symptomatic treatment with prn analgesia - Supportive care with fluids and rest IMPRESSION: No acute radiographic abnormalit Chest x-ray unremarkable. Treat as viral etiology. Patient was educated on supportive therapies. Patient will follow up with primary care provider as needed. Patient was instructed to immediately proceed to emergency room for any new, worsening, or symptoms lasting longer than anticipated. The patient's clinical presentation is otherwise unremarkable at this time. Based on exam and clinical finding, the patient is stable for discharge. Plan of care was discussed with patient. Patient verbalizes understanding and agrees to plan of care. This note was generated using [employer] software. It may contain errors in wording, punctuation, or spelling. Sarah Rouse APRN.SHERI documented in this encounter [facility] Evaluation note Note Date & Type Note Facility Evaluation note No assessment information availa ble [facility] Work Phone: Evaluation note Note Date & Type Note Facility Evaluation note Diagnosis Acute cough- Primary Viral illness Unspecified viral infection, in conditions classified elsewhere and of unspecified site Acute cough documented in this encounter [facility] Evaluation note Note Date & Type Note Facility Evaluation note Diagnosis Acute cough documented in this encounter [facility] Reason for referral (narrative) Note Date & Type Note Facility Reason for referral (narrative) No reason for referral information available [facility] Work Phone: Family History No Family History Records Found Relationship Condition Age at Onset Recorded Date/T delmy father Myocardial infarction Unknown Sudden cardiac 47 Coronary artery disease Unknown mother Diabetes mellitus Unknown Lupus Unknown grandfather Malignant neoplasm Unknown grandmother Hypertension Unknown Chief Complaint and Reason for Visit Chief Complaint LABS AND XRAY- PNEUM ONIA Chief Complaint CERVICALGIA Summary Purpose Advance Directives No Advanced Directives Records FoundNo Advanced Directives Records Found Additional Source Comments Goals (unrecognized section and content) Goals may be documented in a n alternate sectionGoals may be documented in an alternate sectionGoals may be documented in an alternate sectionGoals may be documented in an alternate sectionGoals may be documented in an alternate sectionGoals may be documented in an alternate sectionGoals may be documented in an alternate sectionGoals may be documented in an alternate section Care Teams (unrecognized sec tion and content) Team Status: Active Member Role Status Dates Edin BOB PA-C Family Provider Active Dr. Cuba Lewis MD Primary Care Provider Active Team Status: Inactive Member Role Status Dates Dr. Cuba Lewis MD Primary Care Provi ann, Attending Provider, Referring Provider Active Project Assistant Relationship Specialty Start Date End Date Cuba Lewis MD PCP - General Family Medicine 04/21/12 Project Assistant Relationship Specialty Start Date End Date Cuba Lewis MD PCP - General Family Medicine 04/21/12 Team Status: Inactive Member Role Status Dates Dr. Cuba Lewis MD Primary Care Provider Active Start: August 29, 2024 End: August 29, 2024 Dr. Cuba Lewis MD Attending Provider Active Start: August 29, 2024 End: August 29, 2024 Dr. Cuba Lewis MD Referring Provider Active Start: August 29, 2024 End: August 29, 2024 Team Status: Active Member Role/Relationship Status Dates Edin BOB PA-C Family Provider Active Dr. Cuba Lewis MD Primary Care Provider Active Team Status: Inactive Member Role/Relationship Status Dates Dr. Cuba Lewis MD Primary Care Provider Active Start: August 29, 2024 End: August 29, 2024 Dr. Cuba Lewis MD Attending Provider Active Start: August 29, 2024 End: August 29, 2024 Dr. Cuba Lewis MD Referring Provider Active Start: August 29, 2024 End: August 29, 2024 Team Status: Inactive Member Role/Relationship Status Dates Dr. Cuba Lewis MD Primary Care Provider Active Start: November 22, 2024 End: November 22, 2024 Dr. Trevor Everett MD Attending Provider Active Start: November 22, 2024 End: November 22, 2024 Dr. Trevor Everett MD Referring Provider Active Start: November 22, 2024 End: November 22, 2024 Source Comments (unrecognize d section and content) In the event this informatio n is protected by the Federal Confidentiality of Alcohol and Drug Abuse Patient Records regulations: The Federal rules restrict any use of the information to criminally investigate or prosecute any alcohol or drug abuse patient[facility] the event this information is protected by the Federal Confidentiality of Alcohol and Drug Abuse Patient Records regulations: The Federal rules restrict any use of the information to criminally investigate or prosecute any alcohol or drug abuse patient.[facility] Reason for Visit (unrecogniz ed section and content) Reason Comments Cough Cough, chest congest ion, sinus pressure, fatigue, bodyaches and ST x 6 days INFORMATION SOURCE (unrecogn ized section and content) DATE CREATED AUTHOR 04/30/2024 [facility] DATE CREATED AUTHOR AUTHOR'S ORGANIZ ATION 11/30/2024 [facility] FOR RECORDS PERTAINING TO PATIENTS WHO ARE OR HAVE BEEN ENROLLED IN A CHEMICAL DEPENDENCY/SUBSTANCEABUSE PROGRAM, SOME INFORMATION MAY BE OMITTED. This clinical summary was aggregated from multiple sources. Caution should be exercised in using it in the provision of clinical care. This summary normalizes information from multiple sources, and as a consequence, information in this document may materially change the coding, format and clinical context of patient data. In addition, data may be omitted in some cases. CLINICAL DECISIONS SHOULD BE BASED ON THE PRIMARY CLINICAL RECORDS. [facility]. provides no warranty or guarantee of the accuracy or completeness of information in this document.
[2024-12-30 10:51] LABS: AST(SGOT) 14 U/L (<=31); Alanine Aminotransfer ALT/SGPT 10 U/L (<=34); Albumin, Serum 4.0 g/dL (3.5-5.0); Alkaline Phosphatase 90 U/L (35-104); Anion Gap 13 (5-15); BUN 10 mg/dL (4-19); BUN/Creat Ratio 12.4 RATIO (10-20); Calcium,Total 9.2 mg/dL (7.6-11.0); Carbon Dioxide 23.8 mmol/L (21.0-32.0); Chloride 102 mmol/L (98-108); Cholesterol 214 mg/dL (<=200); Globulin 3.7 g/dL (2.2-4.2); Glucose 95 mg/dL (70-99); Low Density Lipoprotein Calc. 120 mg/dL; Potassium 4.1 mmol/L (3.3-5.1); Triglycerides 190 mg/dL; Very Low Density Lipoprotein 38 mg/dL (5-40); cholesterol:hdl ratio screen 3.85
== END | disposition home or self-care (01) ==
LOC: MFPLAB 08:41
PROVIDERS: PCP Family Medicine; Visit Provider Family Medicine
DX: Z00.00 Encounter for general adult medical examination without abnormal findings (principal); R53.83 Other fatigue
CPT/HCPCS: 36415; 80053; 80061; 84443

== ENCOUNTER → 2025-04-14 | Outpatient (CLI) | payer BC, SELFPAY | END | disposition home or self-care (01) | LOC: PSN 07:52 | PROVIDERS: PCP Family Medicine; Referring Provider Student in an Organized Health Care Education/Training Program; Visit Provider Student in an Organized Health Care Education/Training Program | DX: R00.0 Tachycardia, unspecified (principal); G47.33 Obstructive sleep apnea (adult) (pediatric) | CPT/HCPCS: 93225; 93226 ==